=== PATIENT | female | born 1995 | race Caucasian/White ===

== ENCOUNTER → 2016-09-20 | Outpatient (CLI) | payer MEDICAID ==
[~2016-09-20] MED LIST: NITR-65 PO; PREN1TAB86 PO
--- OUTSIDE RECORDS SUMMARY | 2016-09-20 12:41 | XMS REPORT | Continuity of Care Document ---
Author Author [facility] Ctr of [facility] Ctr [facility] Address Unknown Phone Unavailable Allergies Active Description Code Type Severity Reaction Onset Reported/Identified Relationship to Patient Clinical Status Yes No Known Drug Allergies [id number] Drug Allergy Unknown N/ A 06/20/2014 Medications Problems Date Dx Coded Attending Type Code Diagnosis Diagnosed By 08/11/2009 466.0 ACUTE BRONCHITIS 08/11/2009 466.0 ACUTE BRONCHITIS 08/11/2009 NORM ARCE DO 466.0 ACUTE BRONCHITIS 08/11/2009 466.0 ACUTE BRONCHITIS 08/11/2009 PADILLA IRVIN APRN 466.0 ACUTE BRONCHITIS 08/11/2009 NORM ARCE DO 466.0 ACUTE BRONCHITIS 08/11/2009 NORM ARCE DO 466.0 ACUTE BRONCHITIS 08/11/2009 JAYCEE CORTÉS APRN 466.0 ACUTE BRONCHITIS 05/31/2010 625.3 DYSMENORRHEA 05/31/2010 626.4 IRREGULAR MENSTRUAL CYCLE 05/31/2010 V25.41 SURVEILLANCE OF CONTRACEPTIVE PILL 05/31/2010 625.3 DYSMENORRHEA 05/31/2010 626.4 IRREGULAR MENSTRUAL CYCLE 05/31/2010 V25.41 SURVEILLANCE OF CONTRACEPTIVE PILL 05/31/2010 NORM ARCE DO 625.3 DYSMENORRHEA 05/31/2010 NORM ARCE DO 626.4 IRREGULAR MENSTRUAL CYCLE 05/31/2010 NORM ARCE DO V25.41 SURVEILLANCE OF CONTRACEPTIVE PILL 05/31/2010 625.3 DYSMENORRHEA 05/31/2010 626.4 IRREGULAR MENSTRUAL CYCLE 05/31/2010 V25.41 SURVEILLANCE OF CONTRACEPTIVE PILL 05/31/2010 PADILLA IRVIN APRN 625.3 DYSMENORRHEA 05/31/2010 PADILLA IRVIN APRN 626.4 IRREGULAR MENSTRUAL CYCLE 05/31/2010 PADILLA IRVIN APRN V25.41 SURVEILLANCE OF CONTRACEPTIVE PILL 05/31/2010 NORM ARCE DO 625.3 DYSMENORRHEA 05/31/2010 NORM ARCE DO 626.4 IRREGULAR MENSTRUAL CYCLE 05/31/2010 NORM ARCE DO V25.41 SURVEILLANCE OF CONTRACEPTIVE PILL 05/31/2010 ARCE NORM PATTERSON K 625.3 DYSMENORRHEA 05/31/2010 NORM ARCE DO K 626.4 IRREGULAR MENSTRUAL CYCLE 05/31/2010 ARCE NORM PATTERSON V25.41 SURVEILLANCE OF CONTRACEPTIVE PILL 05/31/2010 JAYCEE CORTÉS APRN R 625.3 DYSMENORRHEA 05/31/2010 JAYCEE CORTÉS APRN 626.4 IRREGULAR MENSTRUAL CYCLE 05/31/2010 JAYCEE CORTÉS APRN V25.41 SURVEILLANCE OF CONTRACEPTIVE PILL 10/04/2011 V04.89 GARDASIL (HPV) DX 10/04/2011 V04.89 GARDASIL (HPV) DX 10/04/2011 NORM ARCE DO V04.89 GARDASIL (HPV) DX 10/04/2011 V04.89 GARDASIL (HPV) DX 10/04/2011 PADILLA IRVIN APRN V04.89 GARDASIL (HPV) DX 10/04/2011 NORM ARCE DO V04.89 GARDASIL (HPV) DX 10/04/2011 NORM ARCE DO V04.89 GARDASIL (HPV) DX 10/04/2011 JAYCEE CORTÉS APRN V04.89 GARDASIL (HPV) DX 04/03/2012 373.12 HORDEOLUM INTERNUM 04/03/2012 373.12 HORDEOLUM INTERNUM 04/03/2012 NORM ARCE DO 373.12 HORDEOLUM INTERNUM 04/03/2012 373.12 HORDEOLUM INTERNUM 04/03/2012 PADILLA IVRIN APRN 373.12 HORDEOLUM INTERNUM 04/03/2012 NORM ARCE DO 373.12 HORDEOLUM INTERNUM 04/03/2012 NORM ARCE DO 373.12 HORDEOLUM INTERNUM 04/03/2012 JAYCEE CORTÉS APRN 373.12 HORDEOLUM INTERNUM 04/10/2012 V25.02 CONTRACEPTION - ANY METHOD 04/10/2012 V65.45 STD COUNSELING 04/10/2012 V74.5 STD SCREEN 04/10/2012 V25.02 CONTRACEPTION - ANY METHOD 04/10/2012 V65.45 STD COUNSELING 04/10/2012 V74.5 STD SCREEN 04/10/2012 NORM ARCE DO K V25.02 CONTRACEPTION - ANY METHOD 04/10/2012 ANASTACIA ARCE DOA K V65.45 STD COUNSELING 04/10/2012 ARCE ANASTACIA PATTERSONA K V74.5 STD SCREEN 04/10/2012 V25.02 CONTRACEPTION - ANY METHOD 04/10/2012 V65.45 STD COUNSELING 04/10/2012 V74.5 STD SCREEN 04/10/2012 PADILLA IRVIN APRN V25.02 CONTRACEPTION - ANY METHOD 04/10/2012 PADILLA IRVIN APRN A V65.45 STD COUNSELING 04/10/2012 PADILLA IRVIN APRN A V74.5 STD SCREEN 04/10/2012 NORM ARCE DO V25.02 CONTRACEPTION - ANY METHOD 04/10/2012 NORM ARCE DO V65.45 STD COUNSELING 04/10/2012 NORM ARCE DO K V74.5 STD SCREEN 04/10/2012 ANASTACIA ARCE DOA K V25.02 CONTRACEPTION - ANY METHOD 04/10/2012 ARCE ANASTACIA PATTERSONA K V65.45 STD COUNSELING 04/10/2012 ARCE ANASTACIA PATTERSONA K V74.5 STD SCREEN 04/10/2012 JAYCEE CORTÉS APRN V25.02 CONTRACEPTION - ANY METHOD 04/10/2012 JAYCEE CORTÉS APRN V65.45 STD COUNSELING 04/10/2012 JAYCEE CORTÉS APRN R V74.5 STD SCREEN 08/23/2012 V70.0 EXAM - ROUTINE H&P 08/23/2012 V70.0 EXAM - ROUTINE H&P 08/23/2012 ANASTACIA ARCE DOA K V70.0 EXAM - ROUTINE H&P 08/23/2012 PADILLA IRVIN APRN A V70.0 EXAM - ROUTINE H&P 08/23/2012 ANASTACIA ARCE DOA K V70.0 EXAM - ROUTINE H&P 08/23/2012 ANASTACIA ARCE DOA K V70.0 EXAM - ROUTINE H&P 08/23/2012 JAYCEE CORTÉS APRN R V70.0 EXAM - ROUTINE H&P 11/12/2012 V25.9 CONTRACEPTION MANAGEMENT 11/12/2012 NORM ARCE DO K V25.9 CONTRACEPTION MANAGEMENT 11/12/2012 PADILLA IRVIN APRN A V25.9 CONTRACEPTION MANAGEMENT 11/12/2012 NORM ARCE DO K V25.9 CONTRACEPTION MANAGEMENT 11/12/2012 ANASTACIA ARCE DOA K V25.9 CONTRACEPTION MANAGEMENT 11/12/2012 JAYCEE CORTÉS APRN R V25.9 CONTRACEPTION MANAGEMENT 2013 ARCE NORM PATTERSON V25.49 CONTRACEPTION SURVEILLANCE (REPEAT RX) 2013 PADILLA IRVIN APRN A V25.49 CONTRACEPTION SURVEILLANCE (REPEAT RX) 2013 NORM ARCE DO V25.49 CONTRACEPTION SURVEILLANCE (REPEAT RX) 2013 NORM ARCE DO V25.49 CONTRACEPTION SURVEILLANCE (REPEAT RX) 2013 JAYCEE CORTÉS APRN V25.49 CONTRACEPTION SURVEILLANCE (REPEAT RX) 06/20/2014 IMELDA SOURAV PATTERSON Ot 599.0 06/20/2014 IMELDA SOURAV PATTERSON Ot 789.09 07/20/2014 JAYCEE CORTÉS APRN 462 ACUTE PHARYNGITIS 03/05/2015 ANDIE ORELLANA APRN Ot 784.0 Procedures Code [place] [address] URINE TEST (IN-HOUSE) 08/23/2012 04507 THERAPUTIC INJ SQ/IM 08/23/2012 J1055 DEPO-PROVERA INJ 150 MG 08/23/2012 48879 URINE TEST (IN-HOUSE) 11/12/2012 44699 THERAPUTIC INJ SQ/IM 11/12/2012 J1050 DEPO PROVERA 01/2013 94010 URINE TEST (IN-HOUSE) 04/29/2013 J1050 DEPO PROVERA 37027 THERAPUTIC INJ SQ/IM 04/29/2013 25909 THERAPUTIC INJ SQ/IM 07/16/2013 J1050 DEPO PROVERA 02/2014 65070 TEST, URINE (IN-HOUSE) 07/16/2013 69822 THERAPUTIC INJ SQ/IM 09/30/2013 J1050 DEPO PROVERA 11456 TEST, URINE (IN-HOUSE) 09/30/2013 03645 THERAPUTIC INJ SQ/IM 12/17/2013 J1050 DEPO PROVERA 05/2014 62238 TEST, URINE (IN-HOUSE) 12/17/2013 20011 STREP A (IN-HOUSE) 07/20/2014 Results Encounters ACCT No. Visit Date/Time Discharge Status Pt. Type Provider Facility Loc./Unit Complaint [id number] 07/20/2014 14:09:00 07/20/2014 23: 59:59 CLS Outpatient JAYCEE CORTÉS APRN [id number] 12/17/2013 13:43:00 12/17/2013 23: 59:59 CLS Outpatient NORM ARCE DO [id number] 09/30/2013 08:09:00 09/30/2013 23: 59:59 CLS Outpatient NORM ARCE DO [id number] 07/16/2013 15:13:00 07/16/2013 23: 59:59 CLS Outpatient PADILLA IRVIN APRN [id number] 04/29/2013 09:57:00 04/29/2013 23: 59:59 CLS Outpatient NORM ARCE DO [id number] 08/23/2012 15:48:00 08/23/2012 23: 59:59 CLS Outpatient [id number] 04/10/2012 10:03:00 04/10/2012 23: 59:59 CLS Outpatient [id number] 11/12/2012 16:41:00 Document Registration
--- NOTE | 2016-09-20 15:47 | Diagnostic Imaging Report ---
INDICATION: Incomplete anatomical evaluation. TECHNIQUE: Multiple, limited real-time grayscale images were obtained of the gravid uterus. CORRELATION STUDY: None. FINDINGS: Cervical length at 4 cm. Fetus is currently in a breech presentation. There is normal amount of amniotic fluid with an index at 16 cm. Placenta is posterior and is somewhat low lying, placenta approximately 2 cm from the cervix. Definitive previa does not appear to be present. The visualized portions of the head appearing unremarkable. The remainder of the anatomical evaluation not performed. Biometrical growth parameters not performed. cardiac activity at 158 beats per minute. IMPRESSION: 1. Very limited obstetrical sonogram imaging demonstrates unremarkable appearance about the head. 2. Posterior placenta is low lying but without definitive evidence for previa. Dictated by: Dictated on workstation # [id number]
== END ==
LOC: RAD 12:37
PROVIDERS: ATTEND Obstetrics & Gynecology
DX: Z36 Encounter for antenatal screening of mother (principal); Z3A.00 Weeks of gestation of pregnancy not specified
CPT/HCPCS: 76816

== ENCOUNTER 2016-11-15 06:21 | Outpatient (CLI) | payer MEDICAID ==
[~2016-11-15] VITALS: Ht 160 cm; Wt 72.1 kg
[~2016-11-15 06:21] MED LIST changes: -PREN1TAB86 PO
[2016-11-15] MEDS ORDERED: PREN1TAB86 PO (06:48)
[2016-11-15 07:01] VITALS: BP 131/77
--- NOTE | 2016-11-16 11:33 | Physician Query-Final Dx ---
MATT CARMEN 11/16/16 1133: Clinic Account Progress/Dx Physician Query: Please give diagnosis Date of Service November 15, 2016 at 06:21 ELICEO WHATLEY DO 11/16/16 1250: Clinic Account Progress/Dx DIAGNOSIS: Diagnosis ??? Dr. Cruz I believe took the call on this patient. Didn't realize she came in. MATT CARMEN November 16, 2016 11:33 ELICEO WHATLEY DO November 16, 2016 12:50
--- NOTE | 2016-11-17 17:01 | Physician Query-Final Dx ---
MATT CARMEN 11/17/16 1701: Clinic Account Progress/Dx Physician Query: Please give diagnosis Date of Service November 15, 2016 at 06:21 CARRINGTON MUJICA MD 11/21/16 1704: Clinic Account Progress/Dx DIAGNOSIS: Diagnosis Round ligament pain, third trimester MATT CARMEN November 17, 2016 17:01 CARRINGTON MUJICA MD November 21, 2016 17:04
== END 2016-11-15 07:30 | disposition home or self-care (01) ==
LOC: WSo 06:21 → LDRP 06:22 → WSo 07:30
PROVIDERS: ATTEND Obstetrics & Gynecology
DX: O26.93 Pregnancy related conditions, unspecified, third trimester (principal); R10.2 Pelvic and perineal pain; Z3A.35 35 weeks gestation of pregnancy
CPT/HCPCS: 99213

== ENCOUNTER 2016-12-09 09:35 | Inpatient (IN) | payer MEDICAID ==
[~2016-12-09] VITALS: Ht 160 cm; Wt 72.6 kg
[2016-12-09] VITALS (27 sets, daily range): BP systolic 106–142; BP diastolic 59–91
[~2016-12-09 09:35] MED LIST changes: +PREN1TAB86 PO
[2016-12-09] MEDS ORDERED: D5 LR IV SOLUTION 1,000 ML IV SCH (10:03)
[2016-12-09] MEDS ORDERED: LIDOCAINE/EPI 1%-1:200,000 (XYLOCAINE) 30 ML VIAL INJ PRN (10:15)
[2016-12-09] MEDS ORDERED: MINERAL OIL CONCENTRATE 99.9% 15 ML UDC TOP PRN (10:15)
[2016-12-09 10:33] LABS: BASOPHILS % (AUTO) 0 % (0-10); EOSINOPHILS # (AUTO) 0.1 10^3/uL (0.0-0.3); EOSINOPHILS % (AUTO) 1 % (0-10); LYMPHOCYTES # (AUTO) 2.1 X 10^3 (1.0-4.0); LYMPHOCYTES % (AUTO) 19 % (12-44); MEAN CORPUSCULAR HEMOGLOBIN 29 PG (25-34); MEAN CORPUSCULAR HGB CONC 33 G/DL (32-36); MEAN CORPUSCULAR VOLUME 88 FL (80-99); MEAN PLATELET VOLUME 11.6 FL (7.4-10.4); MONOCYTES # (AUTO) 0.7 X 10^3 (0.0-1.0); MONOCYTES % (AUTO) 7 % (0-12); NEUTROPHILS # (AUTO) 8.1 X 10^3 (1.8-7.8); NEUTROPHILS % (AUTO) 73 % (42-75); PLATELET COUNT 185 10^3/uL (130-400); RED CELL DISTRIBUTION WIDTH 13.8 % (10.0-14.5); WHITE BLOOD COUNT 11.1 10^3/uL (4.3-11.0)
[2016-12-09] MEDS ORDERED: HYDROmorphone (DILAUDID) 2 MG/ML VIAL IVP PRN ×2 (11:00→19:00)
[2016-12-09 12:28] LABS: BILIRUBIN,URINE NEGATIVE (NEGATIVE); KETONES,URINE NEGATIVE (NEGATIVE); LEUKOCYTE ESTERASE ,URINE 3+ (NEGATIVE); NITRITE,URINE NEGATIVE (NEGATIVE); PH,URINE 7 (5-9); PROTEIN,URINE 4+ (NEGATIVE); UROBILINOGEN,URINE NORMAL (NORMAL)
[2016-12-09 12:38] LABS: SQUAMOUS EPITHELIAL CELL,UR >50 /HPF; WBC,URINE 25-50 /HPF
[2016-12-09] MEDS ORDERED: fentaNYL INJECTION 100 MCG/2 ML AMP ONE ×3 (12:58→18:20)
[2016-12-09] MEDS ORDERED: BUPIVACAINE 0.25% 30 ML (SENSORCAINE) VIAL ONE ×2 (12:58→18:08)
[2016-12-09] MEDS ORDERED: SUFENTA 0.6MCG/ML BUPIVA 0.125 100 ML ONE (13:02)
[2016-12-09] MEDS ORDERED: ONDANSETRON 4 MG/2 ML (SDV) Z0FRAN IV PRN (13:30)
[2016-12-09] MEDS ORDERED: NALOXONE 0.4 MG/ML 1 ML (NARCAN) VIAL IV PRN ×2 (13:30)
[2016-12-09] MEDS ORDERED: EPIDURAL (SUFENTA 0.6MCG/ML BUPIVA 0.125%) 100 ML BAG EPI PRN (13:30)
[2016-12-09] MEDS ORDERED: METOCLOPRAMIDE INJ 10 MG/2 ML (REGLAN) IV PRN (13:30)
[2016-12-09] MEDS ORDERED: LACTATED RINGERS 1,000 ML IV SCH (13:30)
[2016-12-09] MEDS ORDERED: diphenhydrAMINE 50 MG/ML INJ (BENADRYL) IV PRN (13:30)
[2016-12-09] MEDS ORDERED: LACTATED RINGERS 1,000 ML IV PRN (17:28)
[2016-12-09] MEDS ORDERED: NS (IVPB) 0 ML ONE (17:29)
[2016-12-09] MEDS ORDERED: ceFAZolin 2 GM/50 ML NS 50 ML IV ONE (17:30)
[2016-12-09] MEDS ORDERED: FAMOTIDINE 20MG/2ML IV (PEPCID) IV ONE (17:30)
[2016-12-09] MEDS ORDERED: CITRIC ACID/SOB CIT (BICITRA) 30 ML UDC PO ONE (17:30)
[2016-12-09] MEDS ORDERED: METOCLOPRAMIDE INJ 10 MG/2 ML (REGLAN) IV ONE (17:30)
--- NOTE | 2016-12-09 17:31 | History & Physical-OB ---
OB - Chief Complaint & HPI Date Date of Admission: Date of Admission: Dec 09, 2016 at 10:07 am Chief Complaint/History OB-Reason for Admission/Chief: Rupture of Membranes Hx : 1 Hx Para: 0 Expected Date of Delivery: Dec 17, 2016 Gestational Age in Weeks: 38 Gestational Age in Days: 6 Other reason for admission: Active labor SROM Admission Nurse Assessment Rev: Yes History of Labs O pos Antibody neg RNI HBsAg NR HIV NR RPR NR GC neg GBS neg Allergies and Home Medications Allergies Coded Allergies: No Known Drug Allergies (Unverified , 06/20/14) Home Medications Vit W-Ca,Fe,FA(<1 mg) 1 Each Tablet, 1 EACH PO DAILY, (Reported) OB - History Hx of Present Care: Yes Ultrasounds: Normal mid trimester US Obstetrical Complications: None Medical Complications: None Delivery History Hx Blood Disorders: No Adverse Rxn to Tranfusion: No Patient Past Medical History none OB - Admission Exam Physical Exam HEENT: NCAT Heart: Rhythm Normal Lungs: Clear Abdomen: Gravid Extremities: Normal Reflexes: Normal Cervical Dilatation: 3cm Effacement: 75% Station: -1 Membranes: Ruptured Amniotic Fluid: Clear Heart Rate: 130's Accelerations: Accelerations Present Decelerations: No Decelerations Short Term Variability: Present Usp Variability: Average (6-25) Contractions on Admission: < 5 Minutes Apart Intensity: Moderate Labs Laboratory Tests Test 12/09/16 10:15 12/09/16 12:15 Range/Units White Blood Count 11.1 H 4.3-11.0 10^3/uL Red Blood Count 4.20 L 4.35-5.85 10^6/uL Hemoglobin 12.2 11.5-16.0 G/DL Hematocrit 37 35-52 % Mean Corpuscular Volume 88 80-99 FL Mean Corpuscular Hemoglobin 29 25-34 PG Mean Corpuscular Hemoglobin Concent 33 32-36 G/DL Red Cell Distribution Width 13.8 10.0-14.5 % Platelet Count 185 130-400 10^3/uL Mean Platelet Volume 11.6 H 7.4-10.4 FL Neutrophils (%) (Auto) 73 42-75 % Lymphocytes (%) (Auto) 19 12-44 % Monocytes (%) (Auto) 7 0-12 % Eosinophils (%) (Auto) 1 0-10 % Basophils (%) (Auto) 0 0-10 % Neutrophils # (Auto) 8.1 H 1.8-7.8 X 10^3 Lymphocytes # (Auto) 2.1 1.0-4.0 X 10^3 Monocytes # (Auto) 0.7 0.0-1.0 X 10^3 Eosinophils # (Auto) 0.1 0.0-0.3 10^3/uL Basophils # (Auto) 0.0 0.0-0.1 10^3/uL Urine Color RED H Urine Clarity MUCOUS Urine pH 7 5-9 Urine Specific [place] 1.015 L 1.016-1.022 Urine Protein 4+ NEGATIVE Urine Glucose (UA) NEGATIVE NEGATIVE Urine Ketones NEGATIVE NEGATIVE Urine Nitrite NEGATIVE NEGATIVE Urine Bilirubin NEGATIVE NEGATIVE Urine Urobilinogen NORMAL NORMAL MG/DL Urine Leukocyte Esterase 3+ H NEGATIVE Urine RBC (Auto) 5+ H NEGATIVE Urine RBC 50-100 H /HPF Urine WBC 25-50 H /HPF Urine Squamous Epithelial Cells >50 H /HPF Urine Crystals NONE /LPF Urine Bacteria NEGATIVE /HPF Urine Casts NONE /LPF Urine Mucus LARGE H /LPF Urine Culture Indicated YES OB - Assessment/Plan/Diagnosis Assessment Assessment: active labor, rupture of membranes Plan Plan: Expectant Management Discharge Diagnosis Diagnosis: 21 yo @ 38.6 weeks Active labor/ SROM GBS neg ELICEO WHATLEY DO Dec 09, 2016 5:31 pm
--- NOTE | 2016-12-09 17:40 | Progress Note-Standard ---
Standard Progress Note Progress Notes/Assess & Plan Date Seen by Provider: Dec 09, 2016 Time Seen by Provider: 17:15 Progress/Assessment & Plan Patient admitted this morning for SROM and noted to be in active labor making adequate cervical change. She continued to do well, with exception of a few times where FHR tracing was lost, with evidence of potential prolonged decelerations with unknown heart rate change. She received an epidural and continued to progress. She was approx 8-9 at 1430 this afternoon when I checked on patient, and at that time she was noted to be having several variable / and late appearing FHR decelerations. 2 of these were noted down to the 80s with acute recovery. However tachycardia was noted to slowly ensue after these decelerations occurred. I presented at 1700 to evaluate the patient due to these findings given to me by the RN over the phone. There was definitely tachycardia noted. I checked the patient, and due to proximity to complete, had her attempt a few trials of pushing, which did not progress the head any. At this point SVE was 9-10/100/ 0 station. Due to an anticipated long 2nd stage, and continued concern for well being( due to persistent tachycardia and episodes of late/variable/ and prolonged heart rate decelerations, recommendation was made to proceed with primary . Risk of this was discussed with the patient, including risk of bleeding, infection, damaging surrounding structures, potential need for blood transfusion, and even . After all of this was discussed, all questions were answered. OR crew was notified and will proceed [place]. ELICEO WHATLEY DO Dec 09, 2016 5:40 pm
[2016-12-09] MEDS ORDERED: BUPIVACAINE 0.5% 30 ML (SENSORCAINE) VIAL ONE (17:44)
[2016-12-09] MEDS ORDERED: LIDOCAINE PF 2% 10 ML (XYLOCAINE) AMP ONE (17:44)
[2016-12-09] MEDS ORDERED: ONDANSETRON 4 MG/2 ML (SDV) Z0FRAN ONE (18:54)
[2016-12-09] MEDS ORDERED: OXYTOCIN/NORMAL SALINE 1,000 ML IV ONE (18:54)
[2016-12-09] MEDS ORDERED: DEXAMETHASONE PF 10 MG/ML (DECADRON) VIAL ONE (18:54)
[2016-12-09] MEDS ORDERED: OXYTOCIN/NORMAL SALINE 500 ML IV SCH (18:59)
[2016-12-09] MEDS ORDERED: TETANUS,DIPTH,PERTUSS P/F (BOOSTRIX) 0.5 ML VIAL IM SCH (19:00)
[2016-12-09] MEDS ORDERED: MEASLES,MUMPS,RUBELLA 1 EA INJ SC SCH (19:00)
[2016-12-09] MEDS ORDERED: fentaNYL INJECTION 100 MCG/2 ML AMP IVP PRN (19:30)
[2016-12-09] MEDS ORDERED: ONDANSETRON 4 MG/2 ML (SDV) Z0FRAN IVP PRN (19:30)
[2016-12-09] MEDS: KETOROLAC 30 MG/ML VIAL IVP SCH (21:13)
[2016-12-09] MEDS: HYDROcodone/APAP 5 MG/325 MG (LORTAB) TAB PO PRN (21:16)
[2016-12-09] MEDS ORDERED: CATHETER FLUSH 10 ML SYR IV SCH (22:00)
[2016-12-09] MEDS: CATHETER FLUSH 10 ML SYR IV SCH ×2 (22:15→23:59)
--- NOTE | 2016-12-09 22:25 | OPERATIVE REPORT ---
DATE OF SERVICE: PREOPERATIVE DIAGNOSES: 1. A 21-year-old G1, P0 at 38 weeks and 6 days. 2. intolerance of labor. 3. Persistent tachycardia. POSTOPERATIVE DIAGNOSES: 1. A 21-year-old G1, P0 at 38 weeks and 6 days. 2. intolerance of labor. 3. Persistent tachycardia. 4. Double nuchal cord. PROCEDURES: Primary low transverse section. SURGEON: Calos Whatley DO ANESTHESIA: Epidural which is bolused. ESTIMATED BLOOD LOSS: A 350 mL. URINE OUTPUT: At 700 mL clear at the end of procedure. FLUIDS: At 500 mL of lactated Ringer's solution. FINDINGS: A live male infant with weight and still pending, who required resuscitative efforts that will be detailed by crop specialist's note. SPECIMEN SENT: Placenta. INDICATIONS FOR PROCEDURE: Please see my preoperative note for complete details pertaining to patient's labor course and indications for proceeding with . PROCEDURE IN DETAIL: The patient was taken to the operating room where epidural analgesia was bolused and found to be adequate, was placed in a supine position with a leftward tilt, prepped and draped in normal sterile fashion. A test of anesthesia was performed and timeout was performed. I then proceeded with making a Pfannenstiel skin incision with a knife and carried down to underlying fascia using Bovie cautery. The fascial incision was extended laterally using Bovie cautery. Superior aspect of the fascial incision was then grasped with Royce clamps, tented over and dissected off the underlying rectus muscles. The inferior aspect of the fascial incision was then grasped with Royce clamps, tented upward and dissected off to underlying rectus muscles. The rectus muscles were then dissected down the midline using Kirk scissors which exposes the peritoneum which is entered bluntly and extended with blunt traction. A Bhavin ring retractor was placed in the peritoneal incision which offers excellent lateral sidewall retraction. The uterus was found to be thinned out. I then proceed with making a low transverse incision across the uterus to the vesicouterine peritoneum and bluntly dissecting this off the lower uterine segment. I then proceeded with my myotomy until membranes were visualized and entry into the amniotic cavity is noted. I proceed with exiting the uterine incision laterally and superiorly using bandage scissors. The infant is found in the vertex presentation. Its head is elevated up to the incision where it is delivered. Nares and oropharynx are bulb suctioned and there is a double nuchal cord reduced x 2. The infant is then brought into operative field, where the cord was doubly clamped and cut and the is handed off to waiting crop specialist. Cord blood is collected. Three-vessel cord was intact. Placenta is delivered spontaneously, thereafter. IV Pitocin is initiated to facilitate uterine contraction. The uterine fundus becomes firmer by manual massage. The uterus was then exteriorized and cleared of all endometrial clots and debris. I then closed the uterine incision using 0-Vicryl suture in running locked fashion, second layer of imbricating 0-Monocryl is placed. Excellent hemostasis was noted after doing so. I then placed the uterus and bilateral fallopian tubes and ovaries back within the pelvis, and copiously irrigated the pelvis using normal saline. There is no active bleeding noted from any dissection plane. I placed Interceed adhesive over my low transverse incision. I then proceeded with closing the peritoneum using 2-0 Vicryl suture in running fashion. The rectus muscles was reapproximated using 3-0 Vicryl suture in an interrupted fashion. The fascia was reapproximated using 0 Vicryl suture in running fashion. The subcutaneous tissue was reapproximated using 3-0 plain in an interrupted subcutaneous stitch. The skin was reapproximated using 4-0 Monocryl in a running subcuticular. Dermabond was placed over the incision and a sterile dressing and adhesed with white tape. The patient tolerated the procedure well and was taken to the recovery area in stable condition. Lap and sponge counts were correct at the end of the procedure. Needle count was correct as well. Job ID: [id number] DocumentID: [id number] Dictated Date: 12/09/2016 19:00:09 Mathematics Improvement Teacher Date: 12/09/2016 21:48:14 Dictated By: CALOS WHATLEY DO
[2016-12-09] MEDS: DOCUSATE SODIUM 100 MG (COLACE) CAP PO SCH (22:29)
[2016-12-10 00:45] VITALS: BP 117/68
[2016-12-10] MEDS: KETOROLAC 30 MG/ML VIAL IVP SCH ×2 (02:52→08:26)
[2016-12-10 05:52] LABS: BASOPHILS % (AUTO) 0 % (0-10); EOSINOPHILS % (AUTO) 0 % (0-10); LYMPHOCYTES # (AUTO) 1.8 X 10^3 (1.0-4.0); LYMPHOCYTES % (AUTO) 7 % (12-44); MEAN CORPUSCULAR HEMOGLOBIN 29 PG (25-34); MEAN CORPUSCULAR HGB CONC 33 G/DL (32-36); MEAN CORPUSCULAR VOLUME 89 FL (80-99); MONOCYTES # (AUTO) 1.1 X 10^3 (0.0-1.0); MONOCYTES % (AUTO) 5 % (0-12); NEUTROPHILS # (AUTO) 21.8 X 10^3 (1.8-7.8); NEUTROPHILS % (AUTO) 88 % (42-75); PLATELET COUNT 153 10^3/uL (130-400); RED BLOOD COUNT 3.54 10^6/uL (4.35-5.85); WHITE BLOOD COUNT 24.7 10^3/uL (4.3-11.0)
[2016-12-10 06:10] VITALS: BP 113/60
[2016-12-10 08:05] VITALS: BP 114/69
[2016-12-10] MEDS: DOCUSATE SODIUM 100 MG (COLACE) CAP PO SCH (08:26)
[2016-12-10] MEDS ORDERED: IBUP-1773 PO (08:54)
[2016-12-10] MEDS ORDERED: HYDR-3812 PO (08:54)
[2016-12-10] MEDS ORDERED: DOCU100C37 PO (08:54)
--- NOTE | 2016-12-10 08:56 | Discharge Inst-Women's Service ---
Discharge Inst-Women's Serv Depart Medication/Instructions New, Converted or Re-Newed RX: RX on Chart Consults/Follow Up Additional Follow Up: Yes Orders/Referrals Dr. Pedraza later this week. (Call for appointment) Activity Activity: Activity as Tolerated Driving Instructions: No Driving for 1 Week NO SMOKING: NO SMOKING Nothing Inside Vagina: No Douching, No [place], No Tampons Diet Discharge Diet: No Restrictions Symptoms to Report to : Bleeding Excessive, Pain Increased, Fever Over 101 Degrees F, Vaginal Bleeding Increase, Questions/Concerns For Any Problems or Questions: Contact Your Physician Skin/Wound Care Infection Signs and Symptoms: Increased Redness, Foul Odor of Wound, Increased Drainage, Skin Itchy or Has a Rash, Increased Swelling, Temperature Above 101 F Operative Area Clean and Dry: Keep Incision Clean/Dry Stitches/[place]/Dermabond: Dermabond, Care of Stitches Bathing Instructions: ELICEO Escamilla DO Dec 10, 2016 08:56
--- NOTE | 2016-12-10 08:59 | Progress Note-Standard ---
Standard Progress Note Progress Notes/Assess & Plan Date Seen by Provider: Dec 10, 2016 Time Seen by Provider: 09:00 Progress/Assessment & Plan Patient doing well this AM, asking about discharge due to transfer to [place]. Reports good pain control. Ambulating and voiding freely. Vital Sign - Last 24 Hours 12/09/16 617 6//17 617 09:48 11:30 12:00 12:30 Temp 97.2 Pulse 61 52 68 60 Resp 18 18 18 18 B/P (MAP) 134/81 127/81 142/78 142/80 //17 6//17 6//17 17 13:00 13:10 13:13 13:14 Temp 97.2 Pulse 67 77 86 75 Resp 18 18 18 18 B/P (MAP) 130/91 133/87 130/84 129/77 Pulse Ox 97 97 97 /3/17 6//17 6//17 17 13:16 13:20 13:30 13:45 Temp 97.2 Pulse 100 86 103 90 Resp 18 18 18 18 B/P (MAP) 137/86 125/68 121/61 119/59 Pulse Ox 97 97 97 97 /3/17 6//17 //17 17 14:00 14:15 14:30 14:45 Temp 97.0 97.0 Pulse 82 109 66 89 Resp 18 18 18 18 B/P (MAP) 119/69 123/72 117/65 116/67 Pulse Ox 97 98 98 99 12/09/17 12/09/17 //17 12/09/17 15:00 15:15 15:30 15:45 Temp 97.2 Pulse 101 96 78 103 Resp 18 18 18 18 B/P (MAP) 112/64 114/60 122/77 Pulse Ox 99 98 99 100 //17 12/09/17 //17 //17 16:00 16:15 16:30 16:45 Temp 97.6 Pulse 86 76 105 89 Resp 18 18 18 18 B/P (MAP) 108/73 106/61 136/85 Pulse Ox 100 100 100 100 /3/17 12/09/17 //17 17 17:00 17:15 17:30 17:45 Temp 97.5 99.6 Pulse 84 116 108 77 Resp 18 18 18 B/P (MAP) 131/85 137/63 123/74 Pulse Ox 100 100 100 100 12/09/16 12/09/16 12/10/16 12/10/16 18:00 20:05 00:45 06:10 Temp 99.3 97.5 97.4 Pulse 98 78 60 54 Resp 18 18 18 18 B/P (MAP) 125/78 109/63 117/68 113/60 Pulse Ox 100 96 95 97 Intake and Output 12/09/16 12/09/16 12/10/16 15:00 23:00 07:00 Intake Total 1000 ml 2050 ml 1700 ml Output Total 800 ml 600 ml Balance 1000 ml 1250 ml 1100 ml Laboratory Tests Test 12/09/16 10:15 12/09/16 12:15 12/10/16 04:40 Range/Units White Blood Count 11.1 H 24.7 H 4.3-11.0 10^3/uL Red Blood Count 4.20 L 3.54 L 4.35-5.85 10^6/uL Hemoglobin 12.2 10.3 L 11.5-16.0 G/DL Hematocrit 37 31 L 35-52 % Mean Corpuscular Volume 88 89 80-99 FL Mean Corpuscular Hemoglobin 29 29 25-34 PG Mean Corpuscular Hemoglobin Concent 33 33 32-36 G/DL Red Cell Distribution Width 13.8 14.0 10.0-14.5 % Platelet Count 185 153 130-400 10^3/uL Mean Platelet Volume 11.6 H 12.0 H 7.4-10.4 FL Neutrophils (%) (Auto) 73 88 H 42-75 % Lymphocytes (%) (Auto) 19 7 L 12-44 % Monocytes (%) (Auto) 7 5 0-12 % Eosinophils (%) (Auto) 1 0 0-10 % Basophils (%) (Auto) 0 0 0-10 % Neutrophils # (Auto) 8.1 H 21.8 H 1.8-7.8 X 10^3 Lymphocytes # (Auto) 2.1 1.8 1.0-4.0 X 10^3 Monocytes # (Auto) 0.7 1.1 H 0.0-1.0 X 10^3 Eosinophils # (Auto) 0.1 0.0 0.0-0.3 10^3/uL Basophils # (Auto) 0.0 0.0 0.0-0.1 10^3/uL Urine Color RED H Urine Clarity MUCOUS Urine pH 7 5-9 Urine Specific [place] 1.015 L 1.016-1.022 Urine Protein 4+ NEGATIVE Urine Glucose (UA) NEGATIVE NEGATIVE Urine Ketones NEGATIVE NEGATIVE Urine Nitrite NEGATIVE NEGATIVE Urine Bilirubin NEGATIVE NEGATIVE Urine Urobilinogen NORMAL NORMAL MG/DL Urine Leukocyte Esterase 3+ H NEGATIVE Urine RBC (Auto) 5+ H NEGATIVE Urine RBC 50-100 H /HPF Urine WBC 25-50 H /HPF Urine Squamous Epithelial Cells >50 H /HPF Urine Crystals NONE /LPF Urine Bacteria NEGATIVE /HPF Urine Casts NONE /LPF Urine Mucus LARGE H /LPF Urine Culture Indicated YES Incision c/d/i Diagnosis: POD 1 PLTCS Acute blood loss anemia Postoperative leukocytosis P: Will consider dc later today, but only POD1 so may keep until tomorrow morning depending on how repeat labs this afternoon look. Replace iron Encourage ambulation PO precautions, and routine care. ELICEO WHATLEY DO Dec 10, 2016 08:59
--- NOTE | 2016-12-10 12:43 | Anesthesia-Regional Post-Op ---
Regional Patient Condition Mental Status: Alert, Oriented x3 Circulation: Same as Pre-Op Headache: Absent Sensation: Full Recovery Motor Block: Absent Post Op Complications Complications None Follow Up Care/Instructions Patient Instructions None needed. Anesthesia/Patient Condition Patient is doing well, no complaints per nursing. Pt has left the floor to "smoke" per nursing staff. BEBE CAMPOS CRNA Dec 10, 2016 12:43
[2016-12-10] MEDS: HYDROcodone/APAP 5 MG/325 MG (LORTAB) TAB PO PRN (13:38)
[2016-12-10 14:00] VITALS: BP 131/80
[2016-12-10 15:49] LABS: BASOPHILS % (AUTO) 0 % (0-10); EOSINOPHILS % (AUTO) 0 % (0-10); LYMPHOCYTES # (AUTO) 3.7 X 10^3 (1.0-4.0); LYMPHOCYTES % (AUTO) 15 % (12-44); MEAN CORPUSCULAR HEMOGLOBIN 29 PG (25-34); MEAN CORPUSCULAR HGB CONC 33 G/DL (32-36); MEAN CORPUSCULAR VOLUME 89 FL (80-99); MEAN PLATELET VOLUME 11.7 FL (7.4-10.4); MONOCYTES % (AUTO) 4 % (0-12); NEUTROPHILS # (AUTO) 19.4 X 10^3 (1.8-7.8); NEUTROPHILS % (AUTO) 81 % (42-75); PLATELET COUNT 166 10^3/uL (130-400); RED BLOOD COUNT 3.53 10^6/uL (4.35-5.85); RED CELL DISTRIBUTION WIDTH 14.2 % (10.0-14.5); WHITE BLOOD COUNT 24.1 10^3/uL (4.3-11.0)
[2016-12-10 17:15] VITALS: BP 116/70
[2016-12-10] MEDS: FERROUS SULF 325 MG (IRON) TAB PO SCH (17:16)
[2016-12-10] MEDS: IBUPROFEN 600 MG (MOTRIN) TAB PO SCH (17:16)
[2016-12-10 19:15] VITALS: BP 116/72
[2016-12-10] MEDS ORDERED: CALCIUM CARBONATE 500 MG (TUMS) TAB.CHEW PO ONE (22:00)
[2016-12-11] MEDS: IBUPROFEN 600 MG (MOTRIN) TAB PO SCH ×2 (00:29→06:02)
[2016-12-11] MEDS: DOCUSATE SODIUM 100 MG (COLACE) CAP PO SCH ×2 (00:29→08:40)
[2016-12-11 02:00] VITALS: BP 100/56
[2016-12-11 06:39] LABS: BASOPHILS % (AUTO) 0 % (0-10); EOSINOPHILS # (AUTO) 0.1 10^3/uL (0.0-0.3); EOSINOPHILS % (AUTO) 1 % (0-10); LYMPHOCYTES # (AUTO) 4.5 X 10^3 (1.0-4.0); LYMPHOCYTES % (AUTO) 25 % (12-44); MEAN CORPUSCULAR HEMOGLOBIN 29 PG (25-34); MEAN CORPUSCULAR HGB CONC 32 G/DL (32-36); MEAN CORPUSCULAR VOLUME 90 FL (80-99); MEAN PLATELET VOLUME 11.5 FL (7.4-10.4); MONOCYTES # (AUTO) 0.8 X 10^3 (0.0-1.0); MONOCYTES % (AUTO) 4 % (0-12); NEUTROPHILS # (AUTO) 12.7 X 10^3 (1.8-7.8); NEUTROPHILS % (AUTO) 70 % (42-75); PLATELET COUNT 170 10^3/uL (130-400); RED BLOOD COUNT 3.53 10^6/uL (4.35-5.85); RED CELL DISTRIBUTION WIDTH 14.6 % (10.0-14.5); WHITE BLOOD COUNT 18.1 10^3/uL (4.3-11.0)
[2016-12-11 08:40] VITALS: BP 134/78
[2016-12-11] MEDS: FERROUS SULF 325 MG (IRON) TAB PO SCH (08:40)
== END 2016-12-11 10:43 | disposition home or self-care (01) | DRG 766 ==
LOC: LDRP 09:35 → WSo 09:35 → LDRP 10:07
PROVIDERS: ADMIT Obstetrics & Gynecology; ATTEND Obstetrics & Gynecology
PROC: 10D00Z1 Extraction of Products of Conception, Low, Open Approach (ICD-10-PCS; principal; 2016-12-09 18:04)
DX: O76 Abnormality in fetal heart rate and rhythm complicating labor and delivery (principal); O69.81X0 Labor and delivery complicated by cord around neck, without compression, not applicable or unspecified; Z37.0 Single live birth; Z3A.38 38 weeks gestation of pregnancy
CPT/HCPCS: 36415; 81000; 85025; 86850; 86900; 86901; 87088; 94664; 99212

== ENCOUNTER 2017-04-27 17:47 | Emergency (ER) | payer MEDICAID ==
[~2017-04-27] VITALS: Ht 160 cm; Wt 65.8 kg
[~2017-04-27 17:47] MED LIST changes: +DOCU100C37 PO; +HYDR-3812 PO; +IBUP-1773 PO
[2017-04-27] MEDS ORDERED: LIDO15SO2 MM (18:14)
[2017-04-27] MEDS ORDERED: NAPR500T3 PO (18:14)
[2017-04-27] MEDS ORDERED: AMOX875T2 PO (18:14)
--- NOTE | 2017-04-27 18:14 | ED EENT ---
History of Present Illness General Chief Complaint: Dental Problems/Pain Stated Complaint: DENTAL PAIN/BROKEN TOOTH Nursing Triage Note: PT STATES HER TOOTH BROKE WHILE EATING 1 HR AGO AND SHE IS IN A LOT OF PAIN, HAS TAKEN 1200MG IBUPROFEN WITH NO RELIEF. Source: patient History of Present Illness Time seen by provider: 18:08 Initial Comments PT STATES SHE WAS EATING A BURRITO 1 HOUR AGO AND A PIECE OF HER TOOTH BROKE OFF C/O PAIN IN TOOTH SINCE THEN STATES SHE HAS CHRONIC PROBLEMS WITH TEETH, BUT HAS NOT SEEN A DENTIST IN YEARS NO SWELLING TO GUMS OR JAW NO FEVER NO PAIN TO THIS TOOTH PRIOR TO BREAKING IT PCP: DR. MORENO Allergies and Home Medications Allergies Coded Allergies: No Known Drug Allergies (Unverified , 06/20/14) Home Medications Amoxicillin 875 Mg Tablet, 875 MG PO BID, #20 Prescribed by: SOURAV SEGURA on 04/27/171813 Docusate Sodium 100 Mg Capsule, 100 MG PO BID, #40 Prescribed by: ELICEO WHATLEY on 12/10/16 0854 Hydrocodone/Acetaminophen 1 Each Tablet, 1-2 TAB PO Q4H PRN for PAIN-MODERATE TO SEVERE, #50 Prescribed by: ELICEO WHATLEY on 12/10/16 0854 Ibuprofen 600 Mg Tablet, 600 MG PO Q6H PRN for PAIN-MILD TO MODERATE, #80 Prescribed by: ELICEO WHATLEY on 12/10/16 0854 Lidocaine HCl 15 Ml Solution, 1-2 ML MM Q 1-2 HOURS, #100 Prescribed by: SOURAV SEGURA on 04/27/171813 Naproxen 500 Mg Tablet, 500 MG PO BID, #20 Prescribed by: SOURAV SEGURA on 04/27/174 Vit W-Ca,Fe,FA(<1 mg) 1 Each Tablet, 1 EACH PO DAILY, (Reported) Review of Systems Constitutional: no symptoms reported Eyes: No Symptoms Reported Ears: No Symptoms Reported Nose: no symptoms reported Mouth: see HPI Throat: no symptoms reported Respiratory: no symptoms reported Cardiovascular: no symptoms reported Gastrointestinal: no symptoms reported LMP: Apr 27, 2017 (NO CONTROL) Musculoskeletal: no symptoms reported Skin: no symptoms reported Neurological: No Symptoms Reported Hematologic/Lymphatic: No Symptoms Reported Immunological/Allergic: no symptoms reported Past Qqdumqc-Higjil-Senbvp Hx Patient Social History Alcohol Use: Denies Use Recreational Drug Use: Yes (THC) Smoking Status: Current Everyday Smoker (1/2 PPPD) Type Used: Cigarettes Recent Foreign Travel: No Contact w/Someone Who Travel: No Recent Infectious Disease Expo: No Recent Hopitalizations: No Seasonal Allergies Seasonal Allergies: No Surgeries History of Surgeries: Yes ( X 1) Surgeries: Section Respiratory History of Respiratory Disorde: No Cardiovascular History of Cardiac Disorders: No Neurological History of Neurological Disord: No Reproductive System : No Hx Reproductive Disorders: No Genitourinary History of Genitourinary Disor: No Gastrointestinal History of Gastrointestinal Di: No Musculoskeletal History of Musculoskeletal Dis: No Endocrine History of Endocrine Disorders: No HEENT History of HEENT Disorders: Yes (CHRONIC DENTAL PROBLEMS) Cancer History of Cancer: No Psychosocial History of Psychiatric Problem: No Integumentary History of Skin or Integumenta: No Blood Transfusions History of Blood Disorders: No Adverse Reaction to a Blood Tr: No Family Medical History Family Medial History: FH: spinal stenosis (Brother) Physical Exam Vital Signs Vital Sign - Last 12Hours 04/27/17 18:07 Temp 96.4 Pulse 77 Resp 16 B/P (MAP) 135/72 General Appearance: WD/WN, no apparent distress Eyes: bilateral eye normal inspection, bilateral eye PERRL, bilateral eye EOMI Ears: bilateral ear auricle normal, bilateral ear canal normal, bilateral ear TM normal Mouth/Throat: pharynx normal, other (LEFT SECOND MOLAR WITH CARIES AND PIECE OF TOOTH BROKEN TOOTH. NO BLEEDING, NO SWELLING TO GUMS OR JAW) Neck: non-tender, full range of motion, supple, normal inspection Cardiovascular: regular rate, rhythm, no murmur Respiratory: normal breath sounds, no respiratory distress, no accessory muscle use Gastrointestinal: soft Neurologic/Psychiatric: oil dispatcher II-XII nml as tested, no motor/sensory deficits, alert, normal mood/affect, oriented x 3 Skin: normal color, warm/dry Progress/Results/Core Measures Results/Orders Vital Signs/I&O Vital Sign - Last 12Hours 04/27/17 18:07 Temp 96.4 Pulse 77 Resp 16 B/P (MAP) 135/72 Blood Pressure Mean: 93 Departure Impression Impression: Primary Impression: Dental caries Additional Impression: Broken tooth Disposition: 01 HOME, SELF-CARE Condition: Stable Departure-Patient Inst. Referrals: SARAH MORENO,LOCAL PHYSICIAN (PCP) Primary Care Physician Patient Instructions: Fractured Tooth (DC), Dental Pain (DC), Tooth Decay, Adult (DC) Add. Discharge Instructions: FREQUENT SALT WATER SWISHES FOLLOW UP WITH DENTIST OF CHOICE SOON POSSIBLE All discharge instructions reviewed with patient and/or family. Voiced understanding. Scripts Naproxen (Naproxen) 500 Mg Tablet 500 MG PO BID, #20 TAB Prov: SOURAV SEGURA DO 04/27/17 Lidocaine HCl (Lidocaine HCl Viscous) 15 Ml Solution 1-2 ML MM Q 1-2 HOURS for Pain, #100 ML Prov: SOURAV SEGURA DO 04/27/17 Amoxicillin (Amoxicillin) 875 Mg Tablet 875 MG PO BID for INFECTION, #20 TAB Prov: SOURAV SEGURA DO 04/27/17 SOURAV SEGURA DO Apr 27, 2017 18:14
[2017-04-27 18:47] VITALS: BP 135/72
== END 2017-04-27 18:47 | disposition home or self-care (01) ==
LOC: EDUNIT# 17:47 → ER 17:49
DX: K02.9 Dental caries, unspecified (principal); K03.81 Cracked tooth; F17.210 Nicotine dependence, cigarettes, uncomplicated; F11.10 Opioid abuse, uncomplicated; Z87.59 Personal history of other complications of pregnancy, childbirth and the puerperium
CPT/HCPCS: 99282

== ENCOUNTER 2018-01-10 10:18 | Outpatient (CLI) | payer MEDICAID ==
[~2018-01-10] VITALS: Ht 160 cm; Wt 59.0 kg
[~2018-01-10 10:18] MED LIST changes: +ACHD5005 PO; +AMOX875T2 PO; -HYDR-3812 PO; +LIDO15SO2 MM; +NAPR-915 PO; +ONDA4TAB8 SL
[2018-01-11] MEDS ORDERED: ACHD5005 PO (11:30)
== END 2018-01-10 10:49 ==
LOC: PREOP 10:18
PROVIDERS: ATTEND Surgery
DX: Z01.818 Encounter for other preprocedural examination (principal)

== ENCOUNTER 2018-01-11 09:00 | Day surgery (SDC) | payer MEDICAID ==
[~2018-01-11] VITALS: Ht 160 cm; Wt 59.0 kg
[2018-01-11] MEDS ORDERED: ONDANSETRON 4 MG/2 ML (SDV) Z0FRAN ONE (09:09)
[2018-01-11] MEDS ORDERED: proPOfol 200 MG/20 ML (DIPRIVAN) VIAL IV ONE (09:09)
[2018-01-11] MEDS ORDERED: MIDAZOLAM 2 MG/2 ML (VERSED) VIAL ONE (09:09)
[2018-01-11] MEDS ORDERED: LIDOCAINE PF 2% 5 ML (XYLOCAINE) VIAL ONE (09:09)
[2018-01-11] MEDS ORDERED: fentaNYL INJECTION 100 MCG/2 ML AMP ONE ×3 (09:09→11:07)
[2018-01-11] MEDS ORDERED: DEXAMETHASONE 10 MG/ML (DECADRON) 1 ML VIAL ONE (09:09)
[2018-01-11] MEDS ORDERED: ROCURONIUM 10 MG/ML 5 ML SYRINGE IV ONE (09:10)
[2018-01-11] MEDS ORDERED: LACTATED RINGERS 1,000 ML IV ONE (09:10)
--- NOTE | 2018-01-11 09:11 | Progress Note-Pre Operative ---
Pre-Operative Progress Note H&P Reviewed The H&P was reviewed, patient examined and no changes noted. Date Seen by Provider: Jan 07, 2018 Time Seen by Provider: 16:00 Date H&P Reviewed: Jan 11, 2018 Time H&P Reviewed: 09:11 Pre-Operative Diagnosis: Gallstones AGUILA POSADAS MD Jan 11, 2018 9:11 am
[2018-01-11 09:15] VITALS: BP 106/61
[2018-01-11] MEDS ORDERED: ceFAZolin INJECTION 1,000 MG in NS (IVPB) 50 ML IV ONE (09:15)
[2018-01-11] MEDS ORDERED: BUP/EPI 0.5% 1:200,000 (SENSORCAINE) 30 ML VIAL ONE (09:25)
[2018-01-11] MEDS ORDERED: NS (IVPB) 50 ML ONE (09:31)
[2018-01-11] MEDS ORDERED: ceFAZolin 1,000 MG (ANCEF) VIAL ONE (09:31)
[2018-01-11] MEDS ORDERED: metroNIDAZOLE 500MG/100ML IVPB 100 ML ONE (09:31)
[2018-01-11 09:42] LABS: AMPHETAMINE SCREEN, URINE NEGATIVE (NEGATIVE); BARBITURATE SCREEN URINE NEGATIVE (NEGATIVE); BENZODIAZEPINES SCREEN URINE NEGATIVE (NEGATIVE); CANNABINOID SCREEN, URINE POSITIVE (NEGATIVE); COCAINE SCREEN URINE NEGATIVE (NEGATIVE); HCG,QUALITATIVE URINE NEGATIVE (NEGATIVE); METHADONE STAT NEGATIVE (NEGATIVE); METHAMPHETAMINE SCREEN URINE S NEGATIVE (NEGATIVE); OPIATE SCREEN URINE NEGATIVE (NEGATIVE); OXYCODONE STAT NEGATIVE (NEGATIVE); PROPOXYPHENE STAT NEGATIVE (NEGATIVE); TRICYCLIC ANTIDEPRESSANTS SCRE NEGATIVE (NEGATIVE)
[2018-01-11] MEDS: metroNIDAZOLE 500MG/100ML IVPB 100 ML IV ONE ×2 (09:55→09:59)
[2018-01-11] MEDS ORDERED: DESFLURANE (SUPRANE) 15 ML INHAL SOLN ONE ×3 (10:15→11:25)
[2018-01-11] MEDS ORDERED: morphine INJ 10 MG/ML 1ML (SYR OR VIAL) ONE (10:29)
[2018-01-11] MEDS ORDERED: GLYCOPYRROLATE 0.2 MG/ML (ROBINUL) 2 ML VIAL ONE ×2 (11:04→11:23)
[2018-01-11] MEDS ORDERED: NEOSTIGMINE 1 MG/ML 5 ML SYRINGE ONE (11:04)
[2018-01-11] MEDS ORDERED: KETOROLAC 30 MG/ML VIAL ONE (11:24)
--- NOTE | 2018-01-11 11:29 | Operative Report ---
Operative Report Date of Procedure/Surgery Jan 11, 2018 Surgeon (s) AGUILA POSADAS MD Instrument Maker And Repairer (s): n/a Post-Operative Diagnosis Same. Normal cholangiogram Procedure Performed Robotic-assisted cholecystectomy Intraoperative cholangiogram Description of Procedure Anesthesia Type: General Estimated blood loss (mL): Minimal Specimen(s) collected/removed Gallbladder Description of the Procedure Indication for the procedure: This lady presented with symptomatic, multiple small gallstones. He was offered cholecystectomy using minimally invasive technique with robotic assistance and intraoperative cholangiogram, to rule out choledocholithiasis. Informed consent was obtained after reviewing the operative details complications of wound infection and bile leak. Description of the procedure: She was placed supine on the operative table and general anesthesia induced. A gram of Ancef and 500 mg of Flagyl were administered intravenously as prophylaxis against wound infection. Sequential compression devices placed around her legs, to minimize the risk of venous thrombosis. Abdomen was prepared and draped in the usual sterile manner. Pneumoperitoneum was established using a Veress needle introduced over the supraumbilical region. A 12 mm trocar was placed and anatomy visualized using the high definition, 3-dimensional laparoscope, associated with da Robson system. Under direct view, I placed an 8 mm trocar over each side of the abdomen, followed by a 5 mm trocar over the left upper quadrant. The patient was then turned into reverse Trendelenburg position, with the right side tilted up the robotic system was then docked in place. The gallbladder was rather tense with multiple stones. The fundus was retracted cephalad and the infundibulum grasped with Cadiere forceps. Peritoneum overlying Calot's triangle was incised using the hook cautery, delineating the cystic duct and the artery. Cholangiogram was obtained using a Taut catheter. It revealed normal anatomy with no filling defects in the common bile duct. The contrast flowed freely into the duodenum. The catheter was then removed and the cystic duct controlled using locking clips. Cystic artery was managed in a similar fashion. Cholecystectomy was completed using the hook cautery. The gallbladder was then placed in an Endo Catch bag and removed via the supraumbilical trocar site. The fascia over this incision was closed using #1 Vicryl using the Ashish Guzman device. Skin incisions were closed using 4-0 Vicryl, in a subcuticular fashion. 0.5 percent Marcaine with epinephrine was infiltrated along the incisions both preemptively and at the conclusion of the operation. She tolerated the procedure well, was extubated in the operating room and taken to the recovery room in a stable condition. Findings of the Procedure See op report Allergies and Home Medications Allergies Coded Allergies: No Known Drug Allergies (Unverified , 06/20/14) Home Medications Ondansetron 4 Mg Tab.rapdis, 4 MG SL Q4H PRN for NAUSEA/VOMITING-1ST LINE Prescribed by: MARLON HOWARD on 12/31/17 0200 Patient Home Medication List Home Medication List Reviewed: Yes AGUILA POSADAS MD Jan 11, 2018 11:29 am
[2018-01-11] MEDS ORDERED: ACHD5005 PO (11:30)
--- NOTE | 2018-01-11 11:30 | Discharge Inst-Simple/Standard ---
Discharge Inst-Standard Discharge Medications New, Converted or Re-Newed RX: RX on Chart Patient Instructions/Follow Up Plan of Care/Instructions/FU: Band-Aids off in 48 hours. Incentive spirometry. Follow-up in 3 weeks. Activity as Tolerated: Yes Discharge Diet: No Restrictions AGUILA POSADAS MD Jan 11, 2018 11:30 am
--- NOTE | 2018-01-11 11:33 | Diagnostic Imaging Report ---
INDICATION: Gallbladder disease. FINDINGS: There is no intrahepatic or extrahepatic biliary ductal dilatation. There are no intrinsic or extrinsic filling defects about the common bile duct. There is free flow of contrast in the duodenum. IMPRESSION: Unremarkable intraoperative cholangiogram, status post cholecystectomy. Please correlate with the formal operative report. Dictated by: Dictated on workstation # [id number]
[2018-01-11] MEDS ORDERED: ONDANSETRON 4 MG/2 ML (SDV) Z0FRAN IVP PRN (11:45)
[2018-01-11] MEDS ORDERED: MEPERIDINE (DEMEROL) INJ 50 MG/ML IVP PRN (11:45)
[2018-01-11] MEDS ORDERED: fentaNYL INJECTION 100 MCG/2 ML AMP IVP PRN (11:45)
[2018-01-11] MEDS: HYDROmorphone 1 MG/ML (DILAUDID) 1 ML SYRINGE IV PRN ×2 (12:05→12:15)
[2018-01-11 12:45] VITALS: BP 109/66
[2018-01-11 13:15] VITALS: BP 106/61
--- NOTE | 2018-01-11 13:33 | Anesthesia-General Post-Op ---
General Patient Condition Mental Status/LOC: Same as Preop Cardiovascular: Satisfactory Nausea/Vomiting: Absent Respiratory: Satisfactory Pain: Controlled Complications: Absent Post Op Complications Complications None Follow Up Care/Instructions Patient Instructions None needed. Anesthesia/Patient Condition Patient Condition Patient is doing well, no complaints, stable vital signs, no apparent adverse anesthesia problems. No complications reported per nursing. ACACIA ZAVALA CRNA Jan 11, 2018 13:33
[2018-01-11 13:45] VITALS: BP 105/73
[2018-01-11 14:10] VITALS: BP 111/64
== END 2018-01-11 14:10 | disposition home or self-care (01) ==
LOC: SDC 09:00
PROVIDERS: ATTEND Surgery
DX: K80.10 Calculus of gallbladder with chronic cholecystitis without obstruction (principal); F17.210 Nicotine dependence, cigarettes, uncomplicated
CPT/HCPCS: 80306; 84703; 87081; 94664

== ENCOUNTER 2018-04-02 12:19 | Emergency (ER) | payer MEDICAID ==
[~2018-04-02] VITALS: Ht 160 cm; Wt 57.6 kg
--- NOTE | 2018-04-02 12:46 | ED EENT ---
History of Present Illness General Chief Complaint: Dental Problems/Pain Stated Complaint: TOOTH PAIN Nursing Triage Note: PT AMB TO ROOM #9 W/O DIFFICULTY. A&OX4. CO UPPER RT CENTRAL INCISOR PAIN THAT RADIATES TO RT TOP AND BOTTOM JAW. PT REPORTS PAIN BEGAN APPROX ONE WK AGO WITH PAIN INCREASING. REPORTS POSITIVE TEST ON SUNDAY AND HAS BEEN "SCARED TO TAKE ANYTHING FOR THE PAIN." REPORTS TO HAVE HAD APPOINTMENT TO HAVE UPPER TEETH PULLED BUT APPT WAS CANCELED AND HAS NOT RESCHEDULED. Source: patient Exam Limitations: no limitations History of Present Illness Date Seen by Provider: Apr 02, 2018 Time Seen by Provider: 12:30 Initial Comments Patient is a 23 year old female who presents the the emergency room with complaints of pain and gum swelling to her front teeth. She reports that she has had numerous dental caries and past dental infections with several teeth pulled in the past. She reports that she was told she will need to have all of her teeth pulled on the top soon by her dentist and had an appointment for this but canceled it and has not rescheduled. She also states that she recently found out she is and has not taken any medication due to this finding. Timing/Duration: last week Location: mouth, dental Prearrival Treatment: no prearrival treatment Associated Symptoms: tooth pain Allergies and Home Medications Allergies Coded Allergies: No Known Drug Allergies (Unverified , 06/20/14) Home Medications Amoxicillin 500 Mg Capsule, 500 MG PO TID Prescribed by: DANDY CHAUDHARI on 04/02/18 1256 Hydrocodone Bit/Acetaminophen 1 Tab Tab, 1-2 TAB PO 4-6HR PRN for PAIN Prescribed by: AGUILA POSADAS on 01/11/18 1130 Ondansetron 4 Mg Tab.rapdis, 4 MG SL Q4H PRN for NAUSEA/VOMITING-1ST LINE Prescribed by: MARLON HOWARD on 12/31/17 0200 Patient Home Medication List Home Medication List Reviewed: Yes Review of Systems Review of Systems Constitutional: see HPI; No chills, No fever Mouth: see HPI, pain, swelling : Yes LMP: Feb 11, 2018 All Other Systems Reviewed Negative Unless Noted: Yes Past Mkuimui-Pfqats-Udeqph Hx Past Med/Social Hx: Reviewed Nursing Past Med/Soc Hx Patient Social History Alcohol Beverage of Choice: Cheap Liquor, Vodka Drug of Choice: marjiuana Type Used: Cigarettes Recent Foreign Travel: No Contact w/Someone Who Travel: No Recent Infectious Disease Expo: No Recent Hopitalizations: No Seasonal Allergies Seasonal Allergies: No Past Medical History Surgeries: Yes Section Respiratory: No Cardiac: No Neurological: No Reproductive Disorders: No Genitourinary: No Gastrointestinal: No Gall Bladder Disease Musculoskeletal: No Endocrine: No HEENT: Yes (CHRONIC DENTAL PROBLEMS) Cancer: No Psychosocial: No Integumentary: No Blood Disorders: No Adverse Reaction/Blood Tranf: No Family Medical History Reviewed Nursing Family Hx FH: spinal stenosis (Brother) Physical Exam Vital Signs Vital Signs - First Documented 04/02/18 12:26 Temp 97.5 Pulse 92 Resp 16 B/P (MAP) 132/69 (90) Pulse Ox 99 O2 Delivery Room Air Height, Weight, BMI Height: 5'3.00" Weight: 127lbs. 0.0oz. 57.887122bh; 23.0 BMI Method:Stated General Appearance: WD/WN, no apparent distress Eyes: bilateral eye normal inspection, bilateral eye PERRL, bilateral eye EOMI Nose: normal inspection Mouth/Throat: dental tenderness Neck: non-tender, full range of motion, supple, normal inspection Cardiovascular: normal peripheral pulses, regular rate, rhythm, no edema, no gallop, no JVD, no murmur Respiratory: chest non-tender, lungs clear, normal breath sounds, no respiratory distress, no accessory muscle use Neurologic/Psychiatric: alert, normal mood/affect, oriented x 3 Skin: normal color, warm/dry Progress/Results/Core Measures Results/Orders My Orders Orders - DANDY CHAUDHARI Amoxicillin Capsule (Polymox Capsule) (04/02/18 12:49) Vital Signs/I&O 04/02/18 13:00 Temp 97.5 Pulse 90 Resp 18 B/P (MAP) 132/69 (90) Pulse Ox 99 O2 Delivery Room Air Blood Pressure Mean: 90 Progress Progress Note : Time: 12:50 Progress Note I have seen and evaluated the patient. I will be prescribing amoxicillin for infection. She has an appointment with Dr. Pedraza next week for initial visit. She was instructed to take Tylenol for pain. She agrees with plan of care, return precautions were given. Departure Impression Primary Impression: Dental caries extending into dentine Additional Impression: Dental infection Disposition: 01 HOME, SELF-CARE Condition: Stable/Unchanged Departure-Patient Inst. Decision time for Depature: 12:55 Referrals: SARAH MORENO DO (PCP/Family) Primary Care Physician Patient Instructions: Dental Pain (DC), Tooth Abscess (DC) Add. Discharge Instructions: Take medications as directed. Call today for an appointment time at [facility] for further evaluation. You may use Tylenol as directed by the bottle for pain. Return back to the emergency room for any worsening symptoms or concerns as needed. All discharge instructions reviewed with patient and/or family. Voiced understanding. Scripts Amoxicillin (Amoxicillin) 500 Mg Capsule 500 MG PO TID for 7 Days, #21 CAP Prov: DANDY CHAUDHARI 04/02/18 Images Mouth/Nose 1 - Caries 2 - Swelling DANDY CHAUDHARI Apr 02, 2018 12:46
[2018-04-02] MEDS ORDERED: AMOXICILLIN 500 MG (POLYMOX) CAP PO STA (12:49)
[2018-04-02] MEDS ORDERED: AMOX500C2 PO (12:56)
[2018-04-02 13:00] VITALS: BP 132/69
== END 2018-04-02 13:02 | disposition home or self-care (01) ==
LOC: ER 12:19 → EDUNIT# 12:19 → ER 13:02
DX: O99.89 Other specified diseases and conditions complicating pregnancy, childbirth and the puerperium (principal); K02.7 Dental root caries; K04.7 Periapical abscess without sinus; Z98.890 Other specified postprocedural states; Z3A.00 Weeks of gestation of pregnancy not specified
CPT/HCPCS: 99283

== ENCOUNTER → 2018-07-04 | Outpatient (CLI) | payer MEDICAID ==
[~2018-07-04] MED LIST changes: +AMOX500C2 PO
--- NOTE | 2018-07-04 14:07 | Diagnostic Imaging Report ---
INDICATION: survey. TECHNIQUE: Multiple real-time grayscale images were obtained over the gravid uterus. COMPARISON: None. FINDINGS: There is a single live fetus in a cephalic presentation. heart rate was recorded at 147 beats per minute. Placenta is posterior. Amniotic fluid volume is normal. survey demonstrates bladder and stomach to be unremarkable. The brain is unremarkable. There is a four-chamber heart. There is a three-vessel cord with normal insertion. kidneys and spine are not as well visualized on today's study and followup could be performed. Biometrical measurements are as follows: Biparietal 4.74 cm, age 20 weeks 3 days. Head circumference 18.14 cm, age 20 weeks 4 days. Abdominal circumference 14.16 cm, age 19 weeks 4 days. Femur length 3.03 cm, age 19 weeks 3 days. Sonographic estimate age: 20 weeks 0 days. Sonographic estimated date of delivery: 11/21/2018. Estimated Weight: 301 gm (+/- 44 gm). LMP percentile: 14%. heart rate: 147 beats per minute. number: 1 of 1. IMPRESSION: Single live IUP at 20 weeks 0 days gestational age. Estimated date of confinement sonographically is 11/21/2018. Note is made that the kidneys and spine are somewhat limited in evaluation today. Followup ultrasound could be performed. Dictated by: Dictated on workstation # [id number]
== END ==
LOC: RAD 11:03
PROVIDERS: ATTEND Obstetrics & Gynecology
DX: Z36.89 Encounter for other specified antenatal screening (principal); Z3A.20 20 weeks gestation of pregnancy
CPT/HCPCS: 76805

== ENCOUNTER 2018-11-12 00:23 | Inpatient (IN) | payer MEDICAID ==
[~2018-11-12] VITALS: Ht 160 cm; Wt 69.9 kg
[2018-11-12] VITALS (37 sets, daily range): BP systolic 97–135; BP diastolic 49–84
--- NOTE | 2018-11-12 00:25 | NUR ---
RAAD HARPER presented to unit via from ED, accompanied by S/O, with c/o LABOR. RAAD HARPER weighed, gowned, voided, and to bed. EFHM and TOCO applied, VS taken. RAAD HARPER oriented to bed controls, call light, TV, heat, and A/C controls.
[2018-11-12] MEDS ORDERED: D5 LR IV SOLUTION 1,000 ML IV ONE (00:39)
[2018-11-12] MEDS ORDERED: CATHETER FLUSH 10 ML SYR IV PRN (00:45)
[2018-11-12] MEDS ORDERED: D5 LR IV SOLUTION 1,000 ML IV SCH (00:45)
[2018-11-12] MEDS ORDERED: SUFENTA 0.6MCG/ML BUPIVA 0.125 100 ML ONE (00:53)
[2018-11-12 01:02] LABS: BASOPHILS % (AUTO) 0 % (0-10); EOSINOPHILS # (AUTO) 0.1 10^3/uL (0.0-0.3); EOSINOPHILS % (AUTO) 0 % (0-10); HEMATOCRIT 31 % (35-52); HEMOGLOBIN 10.4 G/DL (11.5-16.0); LYMPHOCYTES % (AUTO) 15 % (12-44); MEAN CORPUSCULAR HEMOGLOBIN 30 PG (25-34); MEAN CORPUSCULAR HGB CONC 34 G/DL (32-36); MEAN CORPUSCULAR VOLUME 88 FL (80-99); MEAN PLATELET VOLUME 10.2 FL (7.4-10.4); MONOCYTES # (AUTO) 1.1 X 10^3 (0.0-1.0); MONOCYTES % (AUTO) 6 % (0-12); NEUTROPHILS # (AUTO) 15.5 X 10^3 (1.8-7.8); NEUTROPHILS % (AUTO) 79 % (42-75); PLATELET COUNT 261 10^3/uL (130-400); RED CELL DISTRIBUTION WIDTH 14.2 % (10.0-14.5); WHITE BLOOD COUNT 19.7 10^3/uL (4.3-11.0)
[2018-11-12] MEDS ORDERED: BUPIVACAINE 0.25% 30 ML (SENSORCAINE) VIAL ONE (01:39)
[2018-11-12] MEDS ORDERED: LIDOCAINE PF 2% 5 ML (XYLOCAINE) VIAL ONE (01:39)
[2018-11-12] MEDS ORDERED: fentaNYL INJECTION 100 MCG/2 ML AMP ONE (01:40)
[2018-11-12] MEDS ORDERED: LACTATED RINGERS 1,000 ML IV SCH (02:05)
[2018-11-12] MEDS ORDERED: diphenhydrAMINE 50 MG/ML INJ (BENADRYL) IV PRN (02:15)
[2018-11-12] MEDS ORDERED: ONDANSETRON 4 MG/2 ML (SDV) Z0FRAN IV PRN (02:15)
[2018-11-12] MEDS ORDERED: NALOXONE 0.4 MG/ML 1 ML (NARCAN) VIAL IV PRN (02:15)
[2018-11-12] MEDS ORDERED: EPIDURAL (SUFENTA 0.6MCG/ML BUPIVA 0.125%) 100 ML BAG EPI PRN (02:15)
--- OUTSIDE RECORDS SUMMARY | 2018-11-12 03:07 | XMS REPORT ---
Author Author ELICEO MERCADO Organization [facility] [place] [facility] Address [address] [place] [address] Care Team Providers Care Tetryl Boiling Tub Operator Name Role Phone ELICEO MERCADO Unavailable PROBLEMS No Known Problems ALLERGIES No Information ENCOUNTERS Encounter Location Date Diagnosis [facility] [place] [facility] [address] [address] Jun, [facility] [place] [facility] [address] [address] Jun, [facility] [address] [phone] Jun, Dental abscess K04.7 [facility] [address] [id number] November, Dental caries K02.9 [facility] [address] [id number] Sep, Dental examination Z01.20 [facility] [id number] [place] [phone] November, Poison hitesh L23.7 [facility] [place] [facility] [id number] [place] [address] Oct, [facility] [place] [facility] [id number] [place] [address] Jul, [facility] [place] [facility] [address] [address] Jul, [facility] [place] [facility] [id number] [place] [address] Dec, [facility] [place] [facility] [address] [address] Dec, [facility] [place] [facility] [address] [id number] [place] [address] Sep, [facility] [place] [facility] [address] [id number] [place] [address] Sep, [facility] [place] [facility] [address] [id number] [place] [address] Jul, [facility] [place] [facility] [address] [id number] [place] [address] Jul, [facility] [place] [facility] [address] [id number] [place] [address] Apr, [facility] [place] [facility] [address] [id number] [place] [address] Apr, [facility] [place] [facility] [address] [id number] [place] [address] Feb, [facility] [place] [facility] [address] [id number] [place] [address] November, [facility] [place] [facility] [address] [id number] [place] [address] Aug, [facility] [place] [facility] [address] [id number] [place] [address] May, [facility] [place] [facility] [address] [id number] [place] [address] May, [facility] [place] [facility] [address] [id number] [place] [address] Apr, [facility] [place] [facility] [address] [id number] [place] [address] Mar, [facility] [place] [facility] [address] [id number] [place] [address] November, [facility] [place] [facility] [address] [id number] [place] [address] Sep, [facility] [place] [facility] [address] [facility] [id number] [place] [address] Aug, [facility] [place] [facility] [address] [facility] [id number], [place] [address] May, [facility] [place] [facility] [address] [facility] [id number] [place] [address] May, IMMUNIZATIONS No Known Immunizations SOCIAL HISTORY Never Assessed REASON FOR VISIT dental appt PLAN OF CARE VITAL SIGNS MEDICATIONS Unknown Medications RESULTS No Results PROCEDURES No Known procedures INSTRUCTIONS MEDICATIONS ADMINISTERED No Known Medications MEDICAL (GENERAL) HISTORY Type Description Date Surgical History Cholecystectomy 01/2018
--- OUTSIDE RECORDS SUMMARY | 2018-11-12 03:07 | XMS REPORT ---
Author Author LEAH LAMB Organization [facility] Address [address] [place] [address] Care Team Providers Care Reserves Clerk Name Role Phone LEAH LAMB Unavailable PROBLEMS Type Condition ICD9-CM Code SPT34-IR Code Onset Dates Condition Status SNOMED Code Problem Screening examination for venereal disease V74.5 Active 776096418 Problem Unspecified contraceptive management V25.9 Active 818341564 Problem Counseling on other sexually transmitted diseases V65.45 Active 908077391 Problem Hordeolum internum 373.12 Active 219198686 Problem Acute pharyngitis 462 Active 582627162 Problem General counseling for initiation of other contraceptive measures V25.02 Active 858996445500590 Problem Surveillance of other previously prescribed contraceptive method V25.49 Active 205153500 Problem GARDASIL (HPV) DX V04.89 Active 743668227 Problem Routine general medical examination at health care facility V70.0 Active [id number] ALLERGIES No Known Allergies ENCOUNTERS Encounter Location Date Diagnosis [facility] [id number] [place] [id number] November, Dental caries K02.9 [facility] [id number] [place] [address] [id number] Sep, Dental examination Z01.20 [facility] [id number] [place] [address] November, Poison hitesh L23.7 [facility] [id number] [place] [address] Oct, [facility] [id number] [place] [address] Jul, [facility] [address] [address] Jul, [facility] [place] [facility] [address] [id number] [place] [address] Dec, [facility] [place] [facility] [address] [id number] [place] [address] Dec, [facility] [place] [facility] [address] [id number] [place] [address] Sep, [facility] [place] [facility] [address] [id number] [place] [address] Sep, [facility] [place] [facility] [address] [id number] [place] [address] Jul, [facility] [place] [facility] [address] [id number] [place] [address] Jul, [facility] [place] [facility] [address] [id number] [place] [address] Apr, [facility] [place] [facility] [address] [id number] [place] [address] Apr, [facility] [place] [facility] [address] [id number] [place] [address] Feb, [facility] [place] [facility] [address] [id number] [place] [address] November, [facility] [place] [facility] [address] [id number] [place] [address] Aug, [facility] [place] [facility] [address] [id number] [place] [address] May, [facility] [place] [facility] [address] [id number] [place] [address] May, [facility] [place] [facility] [address] [id number] [place] [address] Apr, [facility] [place] [facility] [address] [id number] [place] Mar, [facility] [place] [facility] [address] [facility] [id number] [place] [address] November, [facility] [address] [facility] [id number] [place] [address] Sep, [facility] [address] [facility] [id number] [place] [address] Aug, [facility] [address] [facility] [id number], [place] [address] May, [facility] [address] [facility] [id number] [place] [address] May, IMMUNIZATIONS No Known Immunizations SOCIAL HISTORY Never Assessed REASON FOR VISIT multi TE PLAN OF CARE Activity Details Follow Up prn Reason:te remaining teeth- 1.5 hours VITAL SIGNS Blood pressure systolic 124 mmHg 2017-11-12 Blood pressure diastolic 76 mmHg 2017-11-12 MEDICATIONS Medication Instructions Dosage Frequency Start Date End Date Duration Status Valium 10 MG Orally Once a day 1 tablet one hour before dental visit 24h November, 1 days Active [place] 5-325 MG Orally every 6 hrs 1 tablet as needed 6h November, November, 4 days Active Amoxicillin 500 MG Orally every 8 hrs 1 capsule 8h November, November, 7 days Active [place] 5-325 MG Orally every 6 hrs 1 tablet as needed 6h November, November, 4 days Active RESULTS No Results PROCEDURES Procedure Date Ordered Result Body Site EXTRAC ERUPTED TOOTH/EXPOSED ROOT November 12, 2017 EXTRAC ERUPTED TOOTH/EXPOSED ROOT November 12, 2017 EXTRAC ERUPTED TOOTH/EXPOSED ROOT November 12, 2017 EXTRAC ERUPTED TOOTH/EXPOSED ROOT November 12, 2017 EXTRAC ERUPTED TOOTH/EXPOSED ROOT November 12, 2017 EXTRAC ERUPTED TOOTH/EXPOSED ROOT November 12, 2017 INSTRUCTIONS MEDICATIONS ADMINISTERED No Known Medications
--- OUTSIDE RECORDS SUMMARY | 2018-11-12 03:07 | XMS REPORT ---
Author Author LEAH LAMB Organization [facility] Address [address] [place] [address] Care Team Providers Care Environmental Field Services Technician Name Role Phone LEAH LAMB Unavailable PROBLEMS Type Condition ICD9-CM Code IJR49-UK Code Onset Dates Condition Status SNOMED Code Problem Screening examination for venereal disease V74.5 Active 764187339 Problem Unspecified contraceptive management V25.9 Active 856931107 Problem Counseling on other sexually transmitted diseases V65.45 Active 540250523 Problem Hordeolum internum 373.12 Active 565269018 Problem Acute pharyngitis 462 Active 104740644 Problem General counseling for initiation of other contraceptive measures V25.02 Active 046191560196518 Problem Surveillance of other previously prescribed contraceptive method V25.49 Active 817669488 Problem GARDASIL (HPV) DX V04.89 Active 894129359 Problem Routine general medical examination at health care facility V70.0 Active 309721387 ALLERGIES No Known Allergies ENCOUNTERS Encounter Location Date Diagnosis [facility] [id number] [place] [phone] November, Dental caries K02.9 [facility] [id number] [place] [id number] Sep, Dental examination Z01.20 [facility] [address] [place] [address] November, Poison hitesh L23.7 [facility] [id number] [place] [address] Oct, [facility] [id number] [place] [address] Jul, [facility] [address] [address] Jul, [facility] [place] [facility] [address] [id number] [place] [address] Dec, [facility] [place] [facility] [address] [id number] [place] [address] Dec, [facility] [place] [facility] [address] [id number] [place] [address] Sep, [facility] [place] [facility] [address] [id number] [place] [address] Sep, [facility] [place] [facility] [address] [id number] [place] [address] Jul, [facility] [place] [facility] [address] [id number] [place] [address] Jul, [facility] [place] [facility] [address] [id number] [place] [address]- [address] Apr, [facility] [place] [facility] [address] [id number] [place] [address] Apr, [facility] [place] [facility] [address] [id number] [place] [address]- [address] Feb, [facility] [place] [facility] [address] [id number] [place] [address] November, [facility] [place] [facility] [address] [id number] [place] [address] Aug, [facility] [place] [facility] [address] [id number] [place] [address] May, [facility] [place] [facility] [address] [id number] [place] [address] 8[address] May, [facility] [place] [facility] [address] [id number] [place] [address] Apr, [facility] [place] [facility] [address] [id number] [place] [address] Mar, [facility] [place] [facility] [address] [facility] [id number] [place] [address] November, [facility] [address] [facility] [id number], [place] [address] Sep, [facility] [address] [id number] [address] Aug, [facility] [address] [facility] [id number], [place] [address] May, [facility] [address] [facility] [id number] [place] [address] May, IMMUNIZATIONS No Known Immunizations SOCIAL HISTORY Never Assessed REASON FOR VISIT vickie PLAN OF CARE Activity Details Follow Up prn Reason:MULTI TE VITAL SIGNS MEDICATIONS No Known Medications RESULTS No Results PROCEDURES Procedure Date Ordered Result Body Site LTD ORAL EVALUATION - PROBLEM FOCUS September 10, 2017 INTRAORL-PERIAPICAL 1 FILM [id number] September 10, 2017 PANORAMIC FILM SEE ALSO CODE [id number] September 10, 2017 INSTRUCTIONS MEDICATIONS ADMINISTERED No Known Medications
--- OUTSIDE RECORDS SUMMARY | 2018-11-12 03:08 | XMS REPORT | Continuity of Care Document ---
Author Organization Unknown Address Unknown Allergies Active Description Code Type Severity Reaction Onset Reported/Identified Relationship to Patient Clinical Status Yes No Known Drug Allergies [id number] Drug Allergy Unknown N/A 06/20/2014 Medications There is no data. Problems Date Dx Coded Attending Type Code [...] DO V25.41 SURVEILLANCE OF CONTRACEPTIVE PILL 05/31/2010 NORM ARCE DO 625.3 DYSMENORRHEA 05/31/2010 NORM ARCE DO 626.4 IRREGULAR MENSTRUAL CYCLE 05/31/2010 NORM ARCE DO V25.41 SURVEILLANCE OF CONTRACEPTIVE PILL 05/31/2010 JAYCEE CORTÉS APRN 625.3 DYSMENORRHEA 05/31/2010 JAYCEE CORTÉS APRN 626.4 IRREGULAR MENSTRUAL CYCLE 05/31/2010 JAYCEE CORTÉS APRN V25.41 SURVEILLANCE OF CONTRACEPTIVE PILL 10/04/2011 V04.89 GARDASIL (HPV ) DX 10/04/2011 V04.89 GARDASIL (HPV ) DX 10/04/2011 NORM ARCE DO V04.89 GARDASIL (HPV) DX 10/04/2011 V04.89 GARDASIL (HPV ) DX 10/04/2011 PADILLA IRVIN APRN V04.89 GARDASIL (HPV) DX 10/04/2011 NORM ARCE DO V04.89 GARDASIL (HPV) DX 10/04/2011 NORM ARCE DO V04.89 GARDASIL (HPV) DX 10/04/2011 JAYCEE CORTÉS APRN V04.89 GARDASIL (HPV) DX 04/03/2012 373.12 HORDEOLUM INTERNUM 04/03/2012 373.12 HORDEOLUM INTERNUM 04/03/2012 NORM ARCE DO 373.12 HORDEOLUM INTERNUM 04/03/2012 373.12 HORDEOLUM INTERNUM 04/03/2012 PADILLA IRVIN APRN 373.12 HORDEOLUM INTERNUM 04/03/2012 NORM ARCE DO 373.12 HORDEOLUM INTERNUM 04/03/2012 NORM ARCE DO 373.12 HORDEOLUM INTERNUM 04/03/2012 JAYCEE CORTÉS APRN 373.12 HORDEOLUM INTERNUM 04/10/2012 V25.02 CONTRACEPTION - ANY METHOD 04/10/2012 V65.45 STD COUNSELING 04/10/2012 V74.5 STD SCREEN 04/10/2012 V25.02 CONTRACEPTION - ANY METHOD 04/10/2012 V65.45 STD COUNSELING 04/10/2012 V74.5 STD SCREEN 04/10/2012 ANASTACIA ARCE DOA K V25.02 CONTRACEPTION - ANY METHOD 04/10/2012 ANASTACIA ARCE DOA K V65.45 STD COUNSELING 04/10/2012 ARCE ANASTACIA PATTERSONA K V74.5 STD SCREEN 04/10/2012 V25.02 CONTRACEPTION - ANY METHOD 04/10/2012 V65.45 STD COUNSELING 04/10/2012 V74.5 STD SCREEN 04/10/2012 PADILLA IRVIN APRN A V25.02 CONTRACEPTION - ANY METHOD 04/10/2012 PADILLA IRVIN APRN A V65.45 STD COUNSELING 04/10/2012 PADILLA IRVIN APRN A V74.5 STD SCREEN 04/10/2012 NORM ARCE DO V25.02 CONTRACEPTION - ANY METHOD 04/10/2012 NORM ARCE DO V65.45 STD COUNSELING 04/10/2012 NORM ARCE DO V74.5 STD SCREEN 04/10/2012 ANASTACIA ARCE DOA K V25.02 CONTRACEPTION - ANY METHOD 04/10/2012 ANASTACIA ARCE DOA K V65.45 STD COUNSELING 04/10/2012 NORM ARCE DO K V74.5 STD SCREEN 04/10/2012 JAYCEE CORTÉS APRN R V25.02 CONTRACEPTION - ANY METHOD 04/10/2012 JAYCEE CORTÉS APRN R V65.45 STD COUNSELING 04/10/2012 JAYCEE CORTÉS APRN R V74.5 STD SCREEN 08/23/2012 V70.0 EXAM - ROUTINE H&P 08/23/2012 V70.0 EXAM - ROUTINE H&P 08/23/2012 ANASTACIA ARCE DOA K V70.0 EXAM - ROUTINE H&P 08/23/2012 CHERIE IRVIN APRNIDI A V70.0 EXAM - ROUTINE H&P 08/23/2012 NORM ARCE DO K V70.0 EXAM - ROUTINE H&P 08/23/2012 ANASTACIA ARCE DOA K V70.0 EXAM - ROUTINE H&P 08/23/2012 JAYCEE CORTÉS APRN R V70.0 EXAM - ROUTINE H&P 11/12/2012 V25.9 CONTRACEPTION MANAGEMENT 11/12/2012 NORM ARCE DO V25.9 CONTRACEPTION MANAGEMENT 11/12/2012 PADILLA IRVIN APRN A V25.9 CONTRACEPTION MANAGEMENT 11/12/2012 ARCE DO, NORM K V25.9 CONTRACEPTION MANAGEMENT 11/12/2012 ARCE DO, NORM K V25.9 CONTRACEPTION MANAGEMENT 11/12/2012 JAYCEE CORTÉS APRN V25.9 CONTRACEPTION MANAGEMENT 2013 ARCE DOANASTACIAA K V25.49 CONTRACEPTION SURVEILLANCE (REPEAT RX) 2013 PADILLA IRVIN APRN V25.49 CONTRACEPTION SURVEILLANCE (REPEAT RX) 2013 ARCE DONORM K V25.49 CONTRACEPTION SURVEILLANCE (REPEAT RX) 2013 ARCE DOANASTACIAA K V25.49 CONTRACEPTION SURVEILLANCE (REPEAT RX) 2013 JAYCEE CORTÉS APRN V25.49 CONTRACEPTION SURVEILLANCE (REPEAT RX) 06/20/2014 SOURAV SEGURA DO Ot 599.0 URIN TRACT INFECTION NOS 06/20/2014 SOURAV SEGURA DO Ot 789.09 ABDOMINAL PAIN, OTHER SPECIFIED SITE 07/20/2014 JAYCEE CORTÉS APRN 462 ACUTE PHARYNGITIS 03/05/2015 ANDIE ORELLANA APRN Ot 784.0 HEADACHE 09/21/2016 ELICEO WHATLEY DO Ot Z36 ENCOUNTER FOR SCREENING OF MOT 09/21/2016 ELICEO WHATLEY DO Ot Z3A.00 WEEKS OF GESTATION OF NOT SPEC 09/26/2016 ELICEO WHATLEY DO Ot Z36 ENCOUNTER FOR SCREENING OF MOT 09/26/2016 ELICEO WHATLEY DO Ot Z3A.00 WEEKS OF GESTATION OF NOT SPEC 10/04/2016 ELICEO WHATLEY DO Ot Z36 ENCOUNTER FOR SCREENING OF MOT 10/04/2016 VIVEKECH ELICEO PATTERSON Ot Z3A.00 WEEKS OF GESTATION OF NOT SPEC 10/04/2016 ELICEO WHATLEY DO Ot Z36 ENCOUNTER FOR SCREENING OF MOT 10/04/2016 ELICEO WHATLEY DO Ot Z3A.00 WEEKS OF GESTATION OF NOT SPEC 10/13/2016 ELICEO WHATLEY DO Ot Z36 ENCOUNTER FOR SCREENING OF MOT 10/13/2016 ELICEO WHATLEY DO Ot Z3A.00 WEEKS OF GESTATION OF NOT SPEC 11/15/2016 ELICEO WHATLEY DO Ot O26.93 RELATED CONDITIONS, UNSPECIFIE 11/15/2016 ELICEO WHATLEY DO Ot R10.2 PELVIC AND PERINEAL PAIN 11/15/2016 ELICEO WHATLEY DO Ot Z3A.35 35 WEEKS GESTATION OF 11/22/2016 ELICEO WHATLEY DO Ot O26.93 RELATED CONDITIONS, UNSPECIFIE 11/22/2016 ELICEO WHATLEY DO Ot R10.2 PELVIC AND PERINEAL PAIN 11/22/2016 ELICEO WHATLEY DO Ot Z3A.35 35 WEEKS GESTATION OF 12/11/2016 ELICEO WHATLEY DO Ot O69.81X0 LABOR AND DEL COMP BY CORD AROUND NECK, 12/11/2016 ELICEO WHATLEY DO Ot O76 ABNLT IN HEART RATE AND RHYTHM COM 12/11/2016 ELICEO WHATLEY DO Ot Z37.0 SINGLE LIVE 12/11/2016 ELICEO WHATLEY DO Ot Z3A.38 38 WEEKS GESTATION OF 04/27/2017 ELICEO WHATLEY DO Ot Z36 ENCOUNTER FOR SCREENING OF MOT 04/27/2017 ELICEO WHATLEY DO, Ot Z3A.00 WEEKS OF GESTATION OF NOT SPEC 04/27/2017 IMELDA SOURAV PATTERSON Ot F11.10 OPIOID ABUSE, UNCOMPLICATED 04/27/2017 SOURAV SEGURA DO K Ot F17.210 NICOTINE DEPENDENCE, CIGARETTES, UNCOMPL 04/27/2017 IMELDASOURAV Abdalla DO K Ot K02.9 DENTAL CARIES, UNSPECIFIED 04/27/2017 SOURAV SEGURA DO Ot K03.81 CRACKED TOOTH 04/27/2017 SOURAV SEGURA DO K Ot K08.89 OTHER SPECIFIED DISORDERS OF TEETH AND S 04/27/2017 IMELDA SOURAV PATTERSON Ot Z87.59 PERSONAL HISTORY OF COMP OF PREG, CHLDBR 05/03/2017 SOURAV SEGURA DO Ot F11.10 OPIOID ABUSE, UNCOMPLICATED 05/03/2017 IMELDA SOURAV PATTERSON K Ot F17.210 NICOTINE DEPENDENCE, CIGARETTES, UNCOMPL 05/03/2017 IMELDA SOURAV PATTERSON K Ot K02.9 DENTAL CARIES, UNSPECIFIED 05/03/2017 SOURAV SEGURA DO K Ot K03.81 CRACKED TOOTH 05/03/2017 IMELDA SOURAV PATTERSON K Ot K08.89 OTHER SPECIFIED DISORDERS OF TEETH AND S 05/03/2017 SOURAV SEGURA DO Ot Z87.59 PERSONAL HISTORY OF COMP OF PREG, CHLDBR 12/31/2017 URSULA DICKERSON, MARLON Schmidt Ot R10.11 RIGHT UPPER QUADRANT PAIN 12/31/2017 MARLON VERGARA MD Ot R11.2 NAUSEA WITH VOMITING, UNSPECIFIED 12/31/2017 URSULA DICKERSON, MARLON Schmidt Ot Z87.59 PERSONAL HISTORY OF COMP OF PREG, CHLDBR 01/03/2018 SARAH MORENO DO Ot K80.20 CALCULUS OF GALLBLADDER W/O CHOLECYSTITI 01/10/2018 KATHARINA DICKERSON, AGUILA Guerrero Ot Z01.818 ENCOUNTER FOR OTHER PREPROCEDURAL EXAMIN 01/11/2018 AGUILA POSADAS MD Ot F17.210 NICOTINE DEPENDENCE, CIGARETTES, UNCOMPL 01/11/2018 AGUILA POSADAS MD Ot K80.10 CALCULUS OF GALLBLADDER W CHRONIC CHOLEC 01/11/2018 AGUILA POSADAS MD Ot Z01.818 ENCOUNTER FOR OTHER PREPROCEDURAL EXAMIN 01/15/2018 SARAH MORENO DO Ot K80.20 CALCULUS OF GALLBLADDER W/O CHOLECYSTITI 01/15/2018 KATHARINA DICKERSON, AGUILA Guerrero Ot F17.210 NICOTINE DEPENDENCE, CIGARETTES, UNCOMPL 01/15/2018 KATHARINA DICKERSON, AGUILA Guerrero Ot K80.10 CALCULUS OF GALLBLADDER W CHRONIC CHOLEC 01/20/2018 URSULA DICKERSON, MARLON Schmidt Ot R10.11 RIGHT UPPER QUADRANT PAIN 01/20/2018 URSULA DICKERSON, MARLON Schmidt Ot R11.2 NAUSEA WITH VOMITING, UNSPECIFIED 01/20/2018 URSULA DICKERSON, MARLON Schmidt Ot Z87.59 PERSONAL HISTORY OF COMP OF PREG, CHLDBR 04/02/2018 DANDY CHAUDHARI Ot K02.7 DENTAL ROOT CARIES 04/02/2018 DANDY CHAUDHARI Ot K04.7 PERIAPICAL ABSCESS WITHOUT SINUS 04/02/2018 DANDY CHAUDHARI Ot O26.899 OTH RELATED CONDITIONS, UNSPEC 04/02/2018 DANDY CHAUDHARI Ot O99.89 OTH DISEASES AND CONDITIONS COMPL PREG/C 04/02/2018 DANDY CHAUDHARI Ot Z3A.00 WEEKS OF GESTATION OF NOT SPEC 04/02/2018 DANDY CHAUDHARI Ot Z98.890 OTHER SPECIFIED POSTPROCEDURAL STATES 04/04/2018 WATSON DANDY Ot K02.7 DENTAL ROOT CARIES 04/04/2018 WATSON DANDY Ot K04.7 PERIAPICAL ABSCESS WITHOUT SINUS 04/04/2018 DANDY CHAUDHARI Ot O26.899 OTH RELATED CONDITIONS, UNSPEC 04/04/2018 AUGIEGEMMA DANDY Ot O99.89 OTH DISEASES AND CONDITIONS COMPL PREG/C 04/04/2018 WATSON DANDY Ot Z3A.00 WEEKS OF GESTATION OF NOT SPEC 04/04/2018 DANDY CHAUDHARI Ot Z98.890 OTHER SPECIFIED POSTPROCEDURAL STATES 07/03/2018 ELICEO WHATLEY DO Ot Z36 ENCOUNTER FOR SCREENING OF MOT 07/03/2018 ELICEO WHATLEY DO Ot Z3A.00 WEEKS OF GESTATION OF NOT SPEC 07/03/2018 SARAH MORENO DO Ot K80.20 CALCULUS OF GALLBLADDER W/O CHOLECYSTITI 07/05/2018 ELICEO WHATLEY DO Ot Z36.89 ENCOUNTER FOR OTHER SPECIFIED 07/05/2018 ELICEO WHATLEY DO Ot Z3A.20 20 WEEKS GESTATION OF 07/25/2018 ELICEO WHATLEY DO Ot Z36.89 ENCOUNTER FOR OTHER SPECIFIED 07/25/2018 ELICEO WHATLEY DO Ot Z3A.20 20 WEEKS GESTATION OF Procedures Code Description [place] [address] URINE TEST (IN- HOUSE) 08/23/2012 35820 THERAPUTIC INJ SQ/IM 08/23/2012 J1055 DEPO-PROVERA INJ 150 MG 08/23/2012 55068 URINE TEST (IN- HOUSE) 11/12/2012 07439 THERAPUTIC INJ SQ/IM 11/12/2012 J1050 DEPO PROVERA 11/12/2012 54408 URINE TEST (IN- HOUSE) 04/29/2013 J1050 DEPO PROVERA 04/29/2013 14210 THERAPUTIC INJ SQ/IM 04/29/2013 18348 THERAPUTIC INJ SQ/IM 07/16/2013 J1050 DEPO PROVERA 07/16/2013 26030 TEST, URINE (IN- HOUSE) 07/16/2013 16626 THERAPUTIC INJ SQ/IM 09/30/2013 J1050 DEPO PROVERA 09/30/2013 73140 TEST, URINE (IN- HOUSE) 09/30/2013 77369 THERAPUTIC INJ SQ/IM 12/17/2013 J1050 DEPO PROVERA 12/17/2013 31970 TEST, URINE (IN- HOUSE) 12/17/2013 76908 STREP A (IN-HOUSE) 07/20/2014 [id number] EXTRACTION OF POC, LOW CERVICAL, OPEN AP 12/09/2016 Results Test Result Range Complete blood count (CBC) with automated white blood cell (WBC) differential - 12/09/16 10:15 Blood leukocytes automated count (number/volume) 11.1 10*3/uL 4.3-11.0 Blood erythrocytes automated count (number/volume) 4.20 10*6/uL 4.35-5.85 Venous blood hemoglobin measurement (mass/volume) 12.2 g/dL 11.5-16.0 Blood hematocrit (volume fraction) 37 % 35-52 Automated erythrocyte mean corpuscular volume 88 [foz_us] 80-99 Automated erythrocyte mean corpuscular hemoglobin (mass per erythrocyte) 29 pg 25-34 Automated erythrocyte mean corpuscular hemoglobin concentration measurement ( mass/volume) 33 g/dL 32-36 Automated erythrocyte distribution width ratio 13.8 % 10.0-14.5 Automated blood platelet count (count/volume) 185 10*3/uL 130-400 Automated blood platelet mean volume measurement 11.6 [foz_us] 7.4-10.4 Automated blood neutrophils/100 leukocytes 73 % 42-75 Automated blood lymphocytes/100 leukocytes 19 % 12-44 Blood monocytes/100 leukocytes 7 % 0-12 Automated blood eosinophils/100 leukocytes 1 % 0-10 Automated blood basophils/100 leukocytes 0 % 0-10 Blood neutrophils automated count (number/volume) 8.1 10*3 1.8-7.8 Blood lymphocytes automated count (number/volume) 2.1 10*3 1.0-4.0 Blood monocytes automated count (number/volume) 0.7 10*3 0.0-1.0 Automated eosinophil count 0.1 10*3/uL 0.0-0.3 Automated blood basophil count (count/volume) 0.0 10*3/uL 0.0-0.1 Blood type T Indirect antibody screen panel - 12/09/16 10:15 ABO+Rh group OP NRG Transfusion band number [id number] NRG Blood group antibody screen NEGATIVE NRG Complete urinalysis with reflex to culture - 12/09/16 12:15 Urine color determination RED NRG Urine clarity determination MUCOUS NRG Urine pH measurement by test strip 7 5-9 Specific gravity of urine by test strip 1.015 1.016- 1.022 Urine protein assay by test strip, semi-quantitative 4+ NEGATIVE Urine glucose detection by automated test strip NEGATIVE NEGATIVE Erythrocytes detection in urine sediment by light microscopy 5+ NEGATIVE Urine ketones detection by automated test strip NEGATIVE NEGATIVE Urine nitrite detection by test strip NEGATIVE NEGATIVE Urine total bilirubin detection by test strip NEGATIVE NEGATIVE Urine urobilinogen measurement by automated test strip (mass/volume) NORMAL NORMAL Urine leukocyte esterase detection by dipstick 3+ NEGATIVE Automated urine sediment erythrocyte count by microscopy (number/high power field) [HPF] NRG Automated urine sediment leukocyte count by microscopy (number/high power field ) [HPF] NRG Bacteria detection in urine sediment by light microscopy NEGATIVE NRG Squamous epithelial cells detection in urine sediment by light microscopy >50 NRG Crystals detection in urine sediment by light microscopy NONE NRG Casts detection in urine sediment by light microscopy NONE NRG Mucus detection in urine sediment by light microscopy LARGE NRG Complete urinalysis with reflex to culture YES NRG Bacterial urine culture - 12/09/16 12:15 Bacterial urine culture [id number] NRG COLONY COUNT 10,000/ML - 100,000/ML NRG Complete blood count (CBC) with automated white blood cell (WBC) differential - 12/10/16 04:40 Blood leukocytes automated count (number/volume) 24.7 10*3/uL 4.3-11.0 Blood erythrocytes automated count (number/volume) 3.54 10*6/uL 4.35-5.85 Venous blood hemoglobin measurement (mass/volume) 10.3 g/dL 11.5-16.0 Blood hematocrit (volume fraction) 31 % 35-52 Automated erythrocyte mean corpuscular volume 89 [foz_us] 80-99 Automated erythrocyte mean corpuscular hemoglobin (mass per erythrocyte) 29 pg 25-34 Automated erythrocyte mean corpuscular hemoglobin concentration measurement ( mass/volume) 33 g/dL 32-36 Automated erythrocyte distribution width ratio 14.0 % 10.0-14.5 Automated blood platelet count (count/volume) 153 10*3/uL 130-400 Automated blood platelet mean volume measurement 12.0 [foz_us] 7.4-10.4 Automated blood neutrophils/100 leukocytes 88 % 42-75 Automated blood lymphocytes/100 leukocytes 7 % 12-44 Blood monocytes/100 leukocytes 5 % 0-12 Automated blood eosinophils/100 leukocytes 0 % 0-10 Automated blood basophils/100 leukocytes 0 % 0-10 Blood neutrophils automated count (number/volume) 21.8 10*3 1.8-7.8 Blood lymphocytes automated count (number/volume) 1.8 10*3 1.0-4.0 Blood monocytes automated count (number/volume) 1.1 10*3 0.0-1.0 Automated eosinophil count 0.0 10*3/uL 0.0-0.3 Automated blood basophil count (count/volume) 0.0 10*3/uL 0.0-0.1 Complete blood count (CBC) with automated white blood cell (WBC) differential - 12/10/16 15:34 Blood leukocytes automated count (number/volume) 24.1 10*3/uL 4.3-11.0 Blood erythrocytes automated count (number/volume) 3.53 10*6/uL 4.35-5.85 Venous blood hemoglobin measurement (mass/volume) 10.3 g/dL 11.5-16.0 Blood hematocrit (volume fraction) 31 % 35-52 Automated erythrocyte mean corpuscular volume 89 [foz_us] 80-99 Automated erythrocyte mean corpuscular hemoglobin (mass per erythrocyte) 29 pg 25-34 Automated erythrocyte mean corpuscular hemoglobin concentration measurement ( mass/volume) 33 g/dL 32-36 Automated erythrocyte distribution width ratio 14.2 % 10.0-14.5 Automated blood platelet count (count/volume) 166 10*3/uL 130-400 Automated blood platelet mean volume measurement 11.7 [foz_us] 7.4-10.4 Automated blood neutrophils/100 leukocytes 81 % 42-75 Automated blood lymphocytes/100 leukocytes 15 % 12-44 Blood monocytes/100 leukocytes 4 % 0-12 Automated blood eosinophils/100 leukocytes 0 % 0-10 Automated blood basophils/100 leukocytes 0 % 0-10 Blood neutrophils automated count (number/volume) 19.4 10*3 1.8-7.8 Blood lymphocytes automated count (number/volume) 3.7 10*3 1.0-4.0 Blood monocytes automated count (number/volume) 1.0 10*3 0.0-1.0 Automated eosinophil count 0.0 10*3/uL 0.0-0.3 Automated blood basophil count (count/volume) 0.0 10*3/uL 0.0-0.1 Complete blood count (CBC) with automated white blood cell (WBC) differential - 12/11/16 06:22 Blood leukocytes automated count (number/volume) 18.1 10*3/uL 4.3-11.0 Blood erythrocytes automated count (number/volume) 3.53 10*6/uL 4.35-5.85 Venous blood hemoglobin measurement (mass/volume) 10.3 g/dL 11.5-16.0 Blood hematocrit (volume fraction) 32 % 35-52 Automated erythrocyte mean corpuscular volume 90 [foz_us] 80-99 Automated erythrocyte mean corpuscular hemoglobin (mass per erythrocyte) 29 pg 25-34 Automated erythrocyte mean corpuscular hemoglobin concentration measurement ( mass/volume) 32 g/dL 32-36 Automated erythrocyte distribution width ratio 14.6 % 10.0-14.5 Automated blood platelet count (count/volume) 170 10*3/uL 130-400 Automated blood platelet mean volume measurement 11.5 [foz_us] 7.4-10.4 Automated blood neutrophils/100 leukocytes 70 % 42-75 Automated blood lymphocytes/100 leukocytes 25 % 12-44 Blood monocytes/100 leukocytes 4 % 0-12 Automated blood eosinophils/100 leukocytes 1 % 0-10 Automated blood basophils/100 leukocytes 0 % 0-10 Blood neutrophils automated count (number/volume) 12.7 10*3 1.8-7.8 Blood lymphocytes automated count (number/volume) 4.5 10*3 1.0-4.0 Blood monocytes automated count (number/volume) 0.8 10*3 0.0-1.0 Automated eosinophil count 0.1 10*3/uL 0.0-0.3 Automated blood basophil count (count/volume) 0.0 10*3/uL 0.0-0.1 Complete blood count (CBC) with automated white blood cell (WBC) differential - 12/31/17 00:25 Blood leukocytes automated count (number/volume) 11.6 10*3/uL 4.3-11.0 Blood erythrocytes automated count (number/volume) 4.44 10*6/uL 4.35-5.85 Venous blood hemoglobin measurement (mass/volume) 13.5 g/dL 11.5-16.0 Blood hematocrit (volume fraction) 39 % 35-52 Automated erythrocyte mean corpuscular volume 87 [foz_us] 80-99 Automated erythrocyte mean corpuscular hemoglobin (mass per erythrocyte) 30 pg 25-34 Automated erythrocyte mean corpuscular hemoglobin concentration measurement ( mass/volume) 35 g/dL 32-36 Automated erythrocyte distribution width ratio 14.0 % 10.0-14.5 Automated blood platelet count (count/volume) 230 10*3/uL 130-400 Automated blood platelet mean volume measurement 11.2 [foz_us] 7.4-10.4 Automated blood neutrophils/100 leukocytes 48 % 42-75 Automated blood lymphocytes/100 leukocytes 45 % 12-44 Blood monocytes/100 leukocytes 5 % 0-12 Automated blood eosinophils/100 leukocytes 2 % 0-10 Automated blood basophils/100 leukocytes 0 % 0-10 Blood neutrophils automated count (number/volume) 5.5 10*3 1.8-7.8 Blood lymphocytes automated count (number/volume) 5.2 10*3 1.0-4.0 Blood monocytes automated count (number/volume) 0.5 10*3 0.0-1.0 Automated eosinophil count 0.2 10*3/uL 0.0-0.3 Automated blood basophil count (count/volume) 0.0 10*3/uL 0.0-0.1 Comprehensive metabolic panel - 12/31/17 00:25 Serum or plasma sodium measurement (moles/volume) 140 mmol/L 135-145 Serum or plasma potassium measurement (moles/volume) 3.4 mmol/L 3.6-5.0 Serum or plasma chloride measurement (moles/volume) 108 mmol/L 98-107 Carbon dioxide 20 mmol/L 21-32 Serum or plasma anion gap determination (moles/volume) 12 mmol/L 5-14 Serum or plasma urea nitrogen measurement (mass/volume) 6 mg/dL 7-18 Serum or plasma creatinine measurement (mass/volume) 0.69 mg/dL 0.60-1.30 Serum or plasma urea nitrogen/creatinine mass ratio 9 NRG Serum or plasma creatinine measurement with calculation of estimated glomerular filtration rate > NRG Serum or plasma glucose measurement (mass/volume) 104 mg/dL 70-105 Serum or plasma calcium measurement (mass/volume) 9.2 mg/dL 8.5-10.1 Serum or plasma total bilirubin measurement (mass/volume) 0.7 mg/dL 0.1-1.0 Serum or plasma alkaline phosphatase measurement (enzymatic activity/volume) 85 U/L 40-136 Serum or plasma aspartate aminotransferase measurement (enzymatic activity/ volume) 13 U/L 5-34 Serum or plasma alanine aminotransferase measurement (enzymatic activity/volume ) 9 U/L 0-55 Serum or plasma protein measurement (mass/volume) 7.1 g/dL 6.4-8.2 Serum or plasma albumin measurement (mass/volume) 4.3 g/dL 3.2-4.5 Lipase - 12/31/17 00:25 Lipase 26 U/L 8-78 Complete urinalysis with reflex to culture - 12/31/17 00:34 Urine color determination YELLOW NRG Urine clarity determination CLEAR NRG Urine pH measurement by test strip 6 5-9 Specific gravity of urine by test strip 1.010 1.016- 1.022 Urine protein assay by test strip, semi-quantitative NEGATIVE NEGATIVE Urine glucose detection by automated test strip NEGATIVE NEGATIVE Erythrocytes detection in urine sediment by light microscopy NEGATIVE NEGATIVE Urine ketones detection by automated test strip NEGATIVE NEGATIVE Urine nitrite detection by test strip NEGATIVE NEGATIVE Urine total bilirubin detection by test strip NEGATIVE NEGATIVE Urine urobilinogen measurement by automated test strip (mass/volume) NORMAL NORMAL Urine leukocyte esterase detection by dipstick NEGATIVE NEGATIVE Automated urine sediment erythrocyte count by microscopy (number/high power field) NONE NRG Automated urine sediment leukocyte count by microscopy (number/high power field ) NONE NRG Bacteria detection in urine sediment by light microscopy TRACE NRG Squamous epithelial cells detection in urine sediment by light microscopy 0-2 NRG Crystals detection in urine sediment by light microscopy NONE NRG Casts detection in urine sediment by light microscopy NONE NRG Mucus detection in urine sediment by light microscopy NEGATIVE NRG Complete urinalysis with reflex to culture NO NRG Urine beta human chorionic gonadotropin (hCG) measurement - 01/11/18 09:15 Urine beta human chorionic gonadotropin (hCG) measurement NEGATIVE NEGATIVE Urine drug screening test - 01/11/18 09:15 Urine phencyclidine detection by screening method NEGATIVE NEGATIVE Urine benzodiazepines detection by screening method NEGATIVE NEGATIVE Urine cocaine detection NEGATIVE NEGATIVE Urine amphetamines detection by screening method NEGATIVE NEGATIVE Urine methamphetamine detection by screening method NEGATIVE NEGATIVE Urine cannabinoids detection by screening method POSITIVE NEGATIVE Urine opiates detection by screening method NEGATIVE NEGATIVE Urine barbiturates detection NEGATIVE NEGATIVE Screening urine tricyclic antidepressants detection NEGATIVE NEGATIVE Urine methadone detection by screening method NEGATIVE NEGATIVE Urine oxycodone detection NEGATIVE NEGATIVE Urine propoxyphene detection NEGATIVE NEGATIVE Methicillin resistant Staphylococcus aureus (MRSA) screening culture - 09:15 Methicillin resistant Staphylococcus aureus (MRSA) screening culture NEG NRG Encounters ACCT No. Visit Date/Time Discharge Status Pt. Type Provider Facility Loc./Unit Complaint [id number] 07/20/2014 14:09:00 07/20/2014 23:59:59 CLS Outpatient JAYCEE CORTÉS APRN [id number] 12/17/2013 13:43:00 12/17/2013 23:59:59 CLS Outpatient NORM ARCE DO [id number] 09/30/2013 08:09:00 09/30/2013 23:59:59 CLS Outpatient NORM ARCE DO [id number] 07/16/2013 15:13:00 07/16/2013 23:59:59 CLS Outpatient CHERIE IRVIN APRNKATYA Melton [id number] 04/29/2013 09:57:00 04/29/2013 23:59:59 CLS Outpatient NORM ARCE DO [id number] 08/23/2012 15:48:00 08/23/2012 23:59:59 CLS Outpatient [id number] 04/10/2012 10:03:00 04/10/2012 23:59:59 CLS Outpatient [id number] 11/12/2012 16:41:00 Document Registration [id number] 07/04/2018 11:03:00 07/04/2018 23:59:59 CLS Outpatient FENELICEO SANTORO DO S [facility] RAD [id number] 04/02/2018 12:19:00 04/02/2018 13:02:00 DIS Emergency DANDY CHAUDHARI [facility] ER TOOTH PAIN [id number] 01/11/2018 09:00:00 01/11/2018 14:10:00 DIS Outpatient AGUILA POSADAS MD [facility] SDC GALLSTONES [id number] 01/10/2018 10:18:00 01/10/2018 10:49:00 DIS Outpatient KATHARINA DICKERSON, AGUILA Guerrero [facility] PREOP GALLSTONES [id number] 01/02/2018 08:13:00 01/02/2018 23:59:59 CLS Outpatient GELLENDER SARAH PATTERSON [facility] RAD ABD PAIN,RUQ PAIN [id number] 12/30/2017 23:59:00 12/31/2017 02:05:00 DIS Emergency MARLON VERGARA MD [facility] ER CANT KEEP ANYTHING DOWN AB PAIN [id number] 04/27/2017 17:49:00 04/27/2017 18:47:00 DIS Emergency SOURAV SEGURA DO [facility] ER DENTAL PAIN/BROKEN TOOTH [id number] 12/09/2016 10:07:00 12/11/2016 10:43:00 DIS Inpatient ELICEO WHATLEY DO [facility] LDRP LABOR [id number] 11/15/2016 06:21:00 11/15/2016 07:30:00 DIS Outpatient ELICEO WHATLEY DO [facility] [facility] WSo ABD PAIN-36 WKS [id number] 09/20/2016 12:37:00 09/20/2016 23:59:59 CLS Outpatient ELICEO WHATLEY DO [facility] RAD [id number] 03/05/2015 11:57:00 03/05/2015 14:29:00 DIS Emergency ANDIE ORELLANA DIE CUTTER OPERATOR [facility]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
[2018-11-12] MEDS ORDERED: LIDOCAINE/EPI 2% 1:200,00 (XYLOCAINE) 10 ML VIAL ONE (04:17)
[2018-11-12] MEDS ORDERED: OXYTOCIN/NORMAL SALINE 500 ML IV ONE (04:28)
[2018-11-12] MEDS: OXYTOCIN/NORMAL SALINE 500 ML IV SCH ×2 (04:44→05:24)
--- NOTE | 2018-11-12 05:02 | History & Physical-OB ---
OB - Chief Complaint & HPI Date/Time Date of Admission: Date of Admission: November 12, 2018 at 00:40 Date seen by a Provider: November 12, 2018 Time Seen by a Provider: 02:00 Chief Complaint/History OB-Reason for Admission/Chief: Onset of Labor Expected Date of Delivery: November 19, 2018 Gestational Age in Weeks: 39 Admission Nurse Assessment Rev: Yes Allergies and Home Medications Allergies Coded Allergies: No Known Drug Allergies (Unverified , 06/20/14) Home Medications Amoxicillin 500 Mg Capsule, 500 MG PO TID Prescribed by: DANDY CHAUDHARI on 04/02/18 1256 Hydrocodone Bit/Acetaminophen 1 Tab Tab, 1-2 TAB PO 4-6HR PRN for PAIN Prescribed by: AGUILA POSADAS on 01/11/18 1130 Ondansetron 4 Mg Tab.rapdis, 4 MG SL Q4H PRN for NAUSEA/VOMITING-1ST LINE Prescribed by: MARLON HOWARD on 12/31/17 0200 Patient Home Medication List Home Medication List Reviewed: Yes OB - History Hx of Present Care: Yes Ultrasounds: Normal mid trimester US Obstetrical Complications: None Medical Complications: None Delivery History Hx Blood Disorders: No Adverse Rxn to Tranfusion: No Patient Past Medical History none Social History/Family History Alcohol Use: Denies Use Recreational Drug Use: No 2nd Hand Smoke Exposure: Yes OB - Admission Exam Physical Exam Vitals: Vital Signs 11/12/18 03:45 Temp 97.0 Pulse 89 Resp 18 B/P (MAP) 114/73 (87) Pulse Ox 100 O2 Delivery Room Air HEENT: NCAT Heart: Rhythm Normal Lungs: Clear Abdomen: Gravid Extremities: Normal Reflexes: Normal Cervical Dilatation: 5cm Effacement: 75% Station: -1 Membranes: Intact Heart Rate: 130's Accelerations: Accelerations Present Decelerations: No Decelerations Short Term Variability: Present Inspector Metal Can Variability: Average (6-25) Contractions on Admission: < 5 Minutes Apart Labs Laboratory Tests Test 11/12/18 00:50 Range/Units White Blood Count 19.7 H 4.3-11.0 10^3/uL Red Blood Count 3.51 L 4.35-5.85 10^6/uL Hemoglobin 10.4 L 11.5-16.0 G/DL Hematocrit 31 L 35-52 % Mean Corpuscular Volume 88 80-99 FL Mean Corpuscular Hemoglobin 30 25-34 PG Mean Corpuscular Hemoglobin Concent 34 32-36 G/DL Red Cell Distribution Width 14.2 10.0-14.5 % Platelet Count 261 130-400 10^3/uL Mean Platelet Volume 10.2 7.4-10.4 FL Neutrophils (%) (Auto) 79 H 42-75 % Lymphocytes (%) (Auto) 15 12-44 % Monocytes (%) (Auto) 6 0-12 % Eosinophils (%) (Auto) 0 0-10 % Basophils (%) (Auto) 0 0-10 % Neutrophils # (Auto) 15.5 H 1.8-7.8 X 10^3 Lymphocytes # (Auto) 3.0 1.0-4.0 X 10^3 Monocytes # (Auto) 1.1 H 0.0-1.0 X 10^3 Eosinophils # (Auto) 0.1 0.0-0.3 10^3/uL Basophils # (Auto) 0.0 0.0-0.1 10^3/uL OB - Assessment/Plan/Diagnosis Assessment Assessment: active labor Admission Dx 23 yo @ 39 weeks Active labor TOLAC GBS neg Admission Status: Inpatient Order (span 2 midnights) Reason for Inpatient Admission: Active labor at term Plan Plan: Expectant Management ELICEO WHATLEY DO November 12, 2018 05:02
--- NOTE | 2018-11-12 05:09 | Discharge Inst-Women's Service ---
Discharge Inst-Women's Serv Depart Medication/Instructions New, Converted or Re-Newed RX: RX on Chart Final Diagnosis PPD 1 NVD Consults/Follow Up Additional Follow Up: Yes Orders/Referrals Dr. Whatley in 6 weeks Activity Activity: Activity as Tolerated Driving Instructions: No Driving for 1 Week NO SMOKING: NO SMOKING Nothing Inside Vagina: No Douching, No Burnett, No Tampons Diet Discharge Diet: No Restrictions Symptoms to Report to : Bleeding Excessive, Pain Increased, Fever Over 101 Degrees F, Vaginal Bleeding Increase, Questions/Concerns For Any Problems or Questions: Contact Your Physician ELICEO WHATLEY DO November 12, 2018 05:09
--- NOTE | 2018-11-12 05:09 | OB Labor & Delivery Record ---
L&D History Date of Service Date of Service: November 12, 2018 History Expected Date of Delivery: November 19, 2018 Gestational Age in Weeks: 39 Hx : 2 Hx Para: 1 Complications Events: Routine care Operative Indications (Cesarea: N/A-Vaginal Delivery Intrapartal Events: None L&D Stage1 Stage One Onset of Labor - Date: November 12, 2018 Monitors and Tracing Monitor Mode: External Heart Rate: 135 Station: 0 Manager Marketing Variability: Average (6-10) Short Term Variability: Present Presentation: Vertex Vital Signs VS - Last 72 Hours, by Label 11/12/18 11/12/18 11/12/18 11/12/18 00:40 01:00 01:15 01:30 Temp 97.1 Pulse 88 80 86 78 Resp 18 18 18 18 B/P (MAP) 126/64 (84) 120/59 (79) 119/61 (80) 123/64 (83) Pulse Ox 97 O2 Delivery Room Air Room Air Room Air Room Air 11/12/18 11/12/18 11/12/18 11/12/18 01:45 01:50 01:55 02:00 Pulse 86 91 86 82 Resp 18 18 18 18 B/P (MAP) 127/59 (81) 127/58 (81) 114/57 (76) 119/59 (79) Pulse Ox 97 97 97 97 O2 Delivery Room Air Room Air Room Air Room Air 11/12/18 11/12/18 11/12/18 11/12/18 02:05 02:10 02:15 02:20 Pulse 83 83 89 86 Resp 18 18 18 18 B/P (MAP) 113/56 (75) 114/53 (73) 111/55 (73) 111/60 (77) Pulse Ox 98 98 98 98 O2 Delivery Room Air Room Air Room Air Room Air 11/12/18 11/12/18 11/12/18 11/12/18 02:25 02:30 02:35 02:40 Pulse 89 72 98 84 Resp 18 18 18 18 B/P (MAP) 116/56 (76) 115/57 (76) 120/58 (78) 116/59 (78) Pulse Ox 98 98 98 98 O2 Delivery Room Air Room Air Room Air Room Air 11/12/18 11/12/18 11/12/18 11/12/18 02:45 02:50 02:55 03:00 Pulse 71 84 83 65 Resp 18 18 18 18 B/P (MAP) 110/53 (72) 113/63 (80) 113/56 (75) 106/59 (75) Pulse Ox 98 98 98 98 O2 Delivery Room Air Room Air Room Air Room Air 11/12/18 11/12/18 11/12/18 03:15 03:30 03:45 Temp 97.0 Pulse 75 81 89 Resp 18 18 18 B/P (MAP) 105/55 (72) 131/60 (83) 114/73 (87) Pulse Ox 99 99 100 O2 Delivery Room Air Room Air Room Air Rupture of Membranes Spontaneous Ruture of Membrane: No Amniotic Membrane Rupture Time: 0215 Amniotic Membrane Fluid Desc.: Clear Vaginal Bleeding Description: Normal Show Induction/Anesthesia Epidural Cath Placement - Time: 0152 Progress/Notes No augmentation used, Epidural received at admission as detailed in policy. She progressed to complete and +2 station without further augmentation L&D Stage2 Stage Two Stage II Date: November 12, 2018 Monitors and Tracing Monitor Mode: External Heart Rate: 135 Monitor Accelerations: Uniform Monitor Decelerations: Variable Penitentiary Variability: Average (6-10) Short Term Variability: Present Position: Right Occiput Anterior Presentation: Vertex Cord Descript/Complications Cord Vessel Description: 3 Vessels Complications nuchal cord x 1 reduced Delivery Type Delivery Method: Spontaneous Vaginal Episiotomy/Perineal Laceration Laceraction(s)/Extensions: Yes Episiotomy Description: Right Mediolateral Location Modifier: Right Degree (describe repair) RML repaired in usual fashion using 3-0 and 2-0 vicryl suture Condition of Delivery 1 minute Comment: 9 5 minute Comment: 9 Notes Live male weight pending Condition of Condition of : Living Exam: No Observed Abnormalities Resuscitation Resuscitation: N/A - Spontaneous Resp L&D Stage3 Stage Three Stage III Date: November 12, 2018 Pictocin Pitocin Administration Comment: 30 mu wide open at delivery of placenta Placenta Delivery Placenta Delivery: Spontaneous Delivery Summary Summary Estimated blood loss (mL): 300 Attending at delivery: Eliceo Whatley DO Condition of Delivery Examined: Cervix Examined, Uterus Explored Post Hemorrhage: Yes Condition of Mother stable Condition of (s) stable ELICEO WHATLEY DO November 12, 2018 05:08
[2018-11-12] MEDS ORDERED: IBUP-844 PO (05:11)
[2018-11-12] MEDS ORDERED: FERR325T18 PO (05:11)
[2018-11-12] MEDS ORDERED: DOCU100C37 PO (05:11)
[2018-11-12] MEDS ORDERED: DIBU30OI TOP (05:11)
[2018-11-12] MEDS ORDERED: Benzocaine/Menthol TP (05:11)
[2018-11-12] MEDS ORDERED: TETANUS,DIPTH,PERTUSS P/F (BOOSTRIX) 0.5 ML VIAL IM ONE (05:15)
[2018-11-12] MEDS ORDERED: DIBUCAINE (NUPERCAINAL) 1% OINT 30 GM TOP PRN (05:15)
[2018-11-12] MEDS ORDERED: BENZOCAINE/MENTHOL (DERMOPLAST) 56 ML CAN TP PRN (05:15)
[2018-11-12] MEDS ORDERED: WITCH HAZEL(TUCKS) 40 EA JAR TOP PRN (05:15)
[2018-11-12] MEDS ORDERED: MEASLES,MUMPS,RUBELLA 1 EA INJ SQ ONE (05:15)
[2018-11-12] MEDS ORDERED: CATHETER FLUSH 10 ML SYR IV SCH (06:00)
--- NOTE | 2018-11-12 06:30 | NUR ---
PERICARE COMPLETED, PAD AND PANTIES APPLIED. PT ASSISTED TO W'C AND TAKEN TO ROOM 307. PT AMBULATED TO BATHROOM. POSITIVE VOID. PT AMBULATED BACK TO BED. INFO PAPERS EXPLAINED. ORIENTATED TO ROOM. S/O AT BEDSIDE. PT DENIES ANY FURTHER NEEDS. WILL CONTINUE TO MONITOR.
[2018-11-12] MEDS: IBUPROFEN 600 MG (MOTRIN) TAB PO SCH ×6 (06:56→22:31)
--- NOTE | 2018-11-12 07:00 | NUR ---
REPORT FROM MULU RAM.
--- NOTE | 2018-11-12 09:30 | NUR ---
INITIAL ASSESSMENT COMPLETED AT BEDSIDE, VSS, NO DISTRESS NOTED.
[2018-11-12] MEDS: DOCUSATE SODIUM 100 MG (COLACE) CAP PO SCH ×2 (09:34→20:47)
[2018-11-12] MEDS: FERROUS SULF 325 MG (IRON) TAB PO SCH (09:34)
[2018-11-12] MEDS: PRENATAL VITAMIN 1 EA TAB PO SCH (09:34)
--- NOTE | 2018-11-12 13:40 | Anesthesia-Regional Post-Op ---
Regional Patient Condition Mental Status: Alert, Oriented x3 Circulation: Same as Pre-Op Headache: Absent Sensation: Full Recovery Motor Block: Absent Post Op Complications Complications None Follow Up Care/Instructions Patient Instructions None needed. Anesthesia/Patient Condition Patient is doing well, no complaints, stable vital signs, no apparent adverse anesthesia problems. No complications reported per nursing. ACACIA ZAVALA CRNA November 12, 2018 13:40
--- NOTE | 2018-11-12 13:45 | NUR ---
KAT REFUSED BY PT.
--- NOTE | 2018-11-12 15:50 | NUR ---
PT REQUEST KAT NOW, GIVEN PER ORDER. Addendum: 11/12/18 at 1640 by MATILDA COKER RN ENTERED AT WRONG TIME.
--- NOTE | 2018-11-12 16:38 | NUR ---
MOTRIN GIVEN PER PT REQUEST NOW.
--- NOTE | 2018-11-12 18:30 | NUR ---
PT IN BED, S/O AT THE BEDSIDE. PT DENIES ANY NEEDS OR QUESTIONS AT THIS TIME. DINNER TRAY REMOVED. CALL LIGHT WITHIN REACH.
[2018-11-13 00:55] VITALS: BP 85/56
[2018-11-13 04:55] VITALS: BP 100/55
[2018-11-13] MEDS: IBUPROFEN 600 MG (MOTRIN) TAB PO SCH ×2 (04:55→10:11)
[2018-11-13 06:35] LABS: BASOPHILS % (AUTO) 0 % (0-10); EOSINOPHILS # (AUTO) 0.1 10^3/uL (0.0-0.3); EOSINOPHILS % (AUTO) 1 % (0-10); HEMATOCRIT 29 % (35-52); HEMOGLOBIN 9.6 G/DL (11.5-16.0); LYMPHOCYTES # (AUTO) 4.8 X 10^3 (1.0-4.0); LYMPHOCYTES % (AUTO) 29 % (12-44); MEAN CORPUSCULAR HEMOGLOBIN 30 PG (25-34); MEAN CORPUSCULAR HGB CONC 33 G/DL (32-36); MEAN CORPUSCULAR VOLUME 92 FL (80-99); MEAN PLATELET VOLUME 10.3 FL (7.4-10.4); MONOCYTES % (AUTO) 6 % (0-12); NEUTROPHILS # (AUTO) 10.3 X 10^3 (1.8-7.8); NEUTROPHILS % (AUTO) 64 % (42-75); PLATELET COUNT 231 10^3/uL (130-400); RED CELL DISTRIBUTION WIDTH 14.4 % (10.0-14.5); WHITE BLOOD COUNT 16.2 10^3/uL (4.3-11.0)
--- NOTE | 2018-11-13 07:26 | Postpartum Progress Note ---
Note Note Day # 1 Subjective: Patient is without complaints. Ambulating, voiding. Tolerating a regular diet without nausea or vomiting. Normal lochia. Pain is well controlled with oral pain medications. Objective: Physical Exam: General - Alert and oriented, no apparent distress Abdomen - Soft, appropriately tender to palpation, non-distended, fundus firm at umbilicus Extremities - no edema, negative Africa's bilaterally Assessment: PPD 1 NVD- successful Acute blood loss anemia Plan: Routine care. Encourage breast feeding. Encourage ambulation. Ferrous sulfate supplementation. Plan for discharge today pending infant release Vitals - Labs Vital Signs - I&O Vital Signs Date Time Temp Pulse Resp B/P (MAP) Pulse Ox O2 Delivery O2 Flow Rate FiO2 11/13/18 04:55 98.9 57 18 100/55 (70) 99 Room Air 11/13/18 00:55 98.8 64 18 85/56 (66) 100 Room Air 11/12/18 20:47 99.1 91 18 107/61 (76) 100 Room Air 11/12/18 16:00 98.0 79 18 108/57 (74) 98 Room Air 11/12/18 13:00 98.6 70 18 114/57 (76) 98 Room Air 11/12/18 07:59 98.0 72 18 111/49 (69) 100 Room Air Labs Laboratory Tests 11/13/18 06:18: White Blood Count 16.2H, Red Blood Count 3.17L, Hemoglobin 9.6L, Hematocrit 29L , Mean Corpuscular Volume 92, Mean Corpuscular Hemoglobin 30, Mean Corpuscular Hemoglobin Concent 33, Red Cell Distribution Width 14.4, Platelet Count 231, Mean Platelet Volume 10.3, Neutrophils (%) (Auto) 64, Lymphocytes (%) (Auto) 29 , Monocytes (%) (Auto) 6, Eosinophils (%) (Auto) 1, Basophils (%) (Auto) 0, Neutrophils # (Auto) 10.3H, Lymphocytes # (Auto) 4.8H, Monocytes # (Auto) 1.0, Eosinophils # (Auto) 0.1, Basophils # (Auto) 0.0 ELICEO WHATLEY DO November 13, 2018 07:26
--- NOTE | 2018-11-13 07:44 | NUR ---
THIS RN TO BEDSIDE, PT RESTING. WILL RETURN AT A LATER TIME FOR ASSESSMENT.
[2018-11-13 07:55] VITALS: BP 106/57
--- NOTE | 2018-11-13 08:05 | NUR ---
DR. WHATLEY IS ON THE UNIT, MAKING ROUNDS.
[2018-11-13] MEDS: DOCUSATE SODIUM 100 MG (COLACE) CAP PO SCH (10:10)
[2018-11-13] MEDS: FERROUS SULF 325 MG (IRON) TAB PO SCH (10:10)
[2018-11-13] MEDS: PRENATAL VITAMIN 1 EA TAB PO SCH (10:10)
--- NOTE | 2018-11-13 10:12 | NUR ---
PT IN BED, HOLDING . VISITORS AT THE BEDSIDE. MEDS GIVEN PO; SEE EMAR FOR FURTHER. PT INFORMED OF PREPPING FOR DISCHARGE, PT VERBALIZES UNDERSTANDING.
--- NOTE | 2018-11-13 10:30 | NUR ---
PT REFUSING MMR AND TDAP VACCINATION AT THIS TIME.
--- NOTE | 2018-11-13 10:36 | NUR ---
PT IN BED, FAMILY AT THE BEDSIDE. DISCHARGE PAPERS PROVIDED AND REVIEWED WITH PT, PT VERBALIZES UNDERSTANDING AND DENIES ANY QUESTIONS AT THIS TIME. PAPER SIGNED. RX'S AND FOLLOW UP APPOINTMENT CARD ALSO PLACED INTO DISCHARGE FOLDER. NO CURRENT NEEDS VOICED AT THIS TIME.
--- NOTE | 2018-11-13 12:20 | NUR ---
PT DISCHARGED FROM -[facility] TO [facility] AMBULATORY IN STABLE CONDITION ACC BY S/O AND [facility] NURSING STUDENTS.
== END 2018-11-13 12:20 | disposition home or self-care (01) | DRG 806 ==
LOC: WSo 00:23 → LDRP 00:24 → WSo 00:40 → LDRP 09:40
PROVIDERS: ADMIT Obstetrics & Gynecology; ATTEND Obstetrics & Gynecology
PROC: 10E0XZZ Delivery of Products of Conception, External Approach (ICD-10-PCS; principal; 2018-11-12)
PROC: 0W8NXZZ Division of Female Perineum, External Approach (ICD-10-PCS; 2018-11-12)
DX: O34.219 Maternal care for unspecified type scar from previous cesarean delivery (principal); O90.81 Anemia of the puerperium; D62 Acute posthemorrhagic anemia; O69.81X0 Labor and delivery complicated by cord around neck, without compression, not applicable or unspecified; O99.333 Smoking (tobacco) complicating pregnancy, third trimester; F17.210 Nicotine dependence, cigarettes, uncomplicated; Z3A.39 39 weeks gestation of pregnancy; Z37.0 Single live birth
CPT/HCPCS: 36415; 85025; 86850; 86900; 86901; 99212

== ENCOUNTER → 2020-02-13 | Outpatient (CLI) | payer MEDICAID ==
[~2020-02-13] MED LIST changes: +Benzocaine/Menthol TP; +DIBU30OI TOP; +FERR325T18 PO; +IBUP-844 PO; -LIDO15SO2 MM; +LIDO20SO23 MM
--- NOTE | 2020-02-13 11:57 | Diagnostic Imaging Report ---
INDICATION: survey. TECHNIQUE: Multiple real-time grayscale images were obtained over the gravid uterus. COMPARISON: None. FINDINGS: There is a single live fetus in a cephalic presentation. heart rate was recorded at 143 bpm. Placenta is anterior. Amniotic fluid index is 11.1 cm. Cervical length is 4.1 cm. survey demonstrates bladder and stomach to be unremarkable. Kidneys are limited in evaluation due to position. brain is unremarkable. There is a four-chamber heart. There is a three-vessel cord with normal insertion. spine is unremarkable. Biometrical measurements are as follows: Biparietal 4.89 cm, age 20 weeks 6 days. Head circumference 18.04 cm, age 20 weeks 4 days. Abdominal circumference 15.37 cm, age 20 weeks 4 days. Femur length 3.29 cm, age 20 weeks 2 days. Sonographic estimate age: 20 weeks 4 days. Sonographic estimated date of delivery: 06/28/2020. Estimated Weight: 355 gm (+/- 52 gm). LMP percentile: 39%. heart rate: 143 beats per minute. number: 1 of 1. IMPRESSION: Single live IUP of 20 weeks 4 days gestational age with estimated date of confinement sonographically of 06/28/2020. survey is unremarkable although kidneys are limited in evaluation due to position. Dictated by: Dictated on workstation # [id number]
== END ==
LOC: RAD 09:45
PROVIDERS: ATTEND Nurse Practitioner Women's Health
DX: Z34.92 Encounter for supervision of normal pregnancy, unspecified, second trimester (principal); Z3A.20 20 weeks gestation of pregnancy
CPT/HCPCS: 76805

== ENCOUNTER 2020-06-24 06:30 | Inpatient (IN) | payer MEDICAID ==
[~2020-06-24] VITALS: Ht 160 cm; Wt 74.5 kg
[2020-06-24] VITALS (40 sets, daily range): BP systolic 92–136; BP diastolic 45–72
--- NOTE | 2020-06-24 06:58 | NUR ---
RAAD HARPER presented to unit via ambulation from ED, accompanied by s.o. for . RAAD HARPER weighed, gowned, voided, and to bed. EFHM and TOCO applied, VS taken. RAAD HARPER oriented to bed controls, call light, TV, heat, and A/C controls.
[2020-06-24] MEDS ORDERED: D5 LR IV SOLUTION 1,000 ML IV SCH (07:45)
[2020-06-24] MEDS ORDERED: D5 LR IV SOLUTION 1,000 ML IV ONE (07:51)
--- NOTE | 2020-06-24 08:03 | NUR ---
#20g IV to Rt.hand x2 attempts by this RN. site patent, secured in place with opsite/tape. admission labs collected prior to IVF's infusing.
[2020-06-24 08:21] LABS: BASOPHILS % (AUTO) 0 % (0-10); EOSINOPHILS # (AUTO) 0.1 10^3/uL (0.0-0.3); EOSINOPHILS % (AUTO) 1 % (0-10); HEMATOCRIT 33 % (35-52); HEMOGLOBIN 10.8 g/dL (11.5-16.0); LYMPHOCYTES # (AUTO) 2.6 10^3/uL (1.0-4.0); LYMPHOCYTES % (AUTO) 18 % (12-44); MEAN CORPUSCULAR HEMOGLOBIN 30 pg (25-34); MEAN CORPUSCULAR HGB CONC 33 g/dL (32-36); MEAN CORPUSCULAR VOLUME 90 fL (80-99); MEAN PLATELET VOLUME 10.8 fL (9.0-12.2); MONOCYTES # (AUTO) 0.7 10^3/uL (0.0-1.0); MONOCYTES % (AUTO) 5 % (0-12); NEUTROPHILS # (AUTO) 10.9 10^3/uL (1.8-7.8); NEUTROPHILS % (AUTO) 76 % (42-75); PLATELET COUNT 223 10^3/uL (130-400); WHITE BLOOD COUNT 14.4 10^3/uL (4.3-11.0)
[2020-06-24] MEDS ORDERED: fentaNYL 2 mcg/ml BUPIVA 0.125 100 ML ONE (08:45)
[2020-06-24] MEDS ORDERED: OXYTOCIN PRE-MIX DRIP 500 ML IV SCH ×2 (08:45→14:45)
[2020-06-24] MEDS ORDERED: LACTATED RINGERS 1,000 ML IV ONE ×3 (08:46→10:15)
[2020-06-24] MEDS ORDERED: OXYTOCIN PRE-MIX DRIP 500 ML IV ONE (08:46)
--- NOTE | 2020-06-24 09:05 | NUR ---
COVID 19 swab collected, labeled and sent to lab.
--- NOTE | 2020-06-24 09:18 | NUR ---
anesthesia notified for epidural placement per protocol
--- NOTE | 2020-06-24 09:30 | NUR ---
PORSHA Alvarez and URBAN Rios here for epidural placement. Procedure explained, consent reviewed and signed by anesthesia. Questions answered to patient's satisfaction. Time out taken to verify correct patient/procedure. 0944- Patient up to side of bed, assisted into sitting position. Betadine prep done x3 and sterile drape applied. 0949- Local done, see anesthesia record. 0958- Test dose given, see anesthesia record for drug and dosage. Epidural catheter secured in place. Epidural placement complete. 1005-Assisted back into bed, monitors adjusted. Epidural dosed, see anesthesia record. Epidural of Sufenta/Fentanyl @12cc/hr stated per pump. Patient tolerated procedure well.
[2020-06-24] MEDS ORDERED: fentaNYL INJECTION 100 MCG/2 ML AMP ONE (09:34)
[2020-06-24] MEDS ORDERED: LIDOCAINE PF 2% 5 ML (XYLOCAINE) VIAL ONE (09:58)
[2020-06-24] MEDS ORDERED: BUPIVACAINE 0.25% 30 ML (SENSORCAINE) VIAL ONE (09:58)
[2020-06-24] MEDS ORDERED: fentaNYL INJECTION 100 MCG/2 ML AMP INJ ONE (10:15)
[2020-06-24] MEDS ORDERED: NALOXONE 0.4 MG/ML 1 ML (NARCAN) VIAL IV PRN (10:15)
[2020-06-24] MEDS ORDERED: ONDANSETRON 4 MG/2 ML (SDV) Z0FRAN IV PRN (10:15)
[2020-06-24] MEDS ORDERED: EPIDURAL (fentaNYL 2 MCG/ML BUPIVA 0.125%)100 ML BAG EPI PRN (10:15)
[2020-06-24] MEDS ORDERED: fentaNYL 2 mcg/ml BUPIVA 0.125 100 ML EPI PRN (10:30)
[2020-06-24] MEDS ORDERED: CATHETER FLUSH 10 ML SYR IV SCH ×2 (14:00→22:00)
--- NOTE | 2020-06-24 14:37 | History & Physical-OB ---
OB - Chief Complaint & HPI Date/Time Date of Admission: Date of Admission: Jun 24, 2020 at 6:53 am Date seen by a Provider: Jun 24, 2020 Time Seen by a Provider: 07:15 Chief Complaint/History OB-Reason for Admission/Chief: Induction of Labor Hx : 3 Hx Para: 2 Expected Date of Delivery: Jun 28, 2020 Gestational Age in Weeks: 39 Gestational Age in Days: 3 Admission Nurse Assessment Rev: Yes Allergies and Home Medications Allergies Coded Allergies: No Known Drug Allergies (Unverified , 06/20/14) Home Medications Dibucaine 30 Gm Oint, 0 GM TOP UD PRN for PAIN- SEE INSTRUCTIONS Prescribed by: ELICEO WHATLEY on 11/12/18510 Docusate Sodium 100 Mg Capsule, 100 MG PO BID PRN for CONSTIPATION-1ST LINE Prescribed by: ELICEO WHATLEY on 11/12/18510 Ferrous Sulfate 325 Mg Tablet, 325 MG PO DAILY Prescribed by: ELICEO WHATLEY on 11/12/18510 Ibuprofen 600 Mg Tablet, 600 MG PO Q6HR Prescribed by: ELICEO WHATLEY on 11/12/18510 [Benzocaine/Menthol] 56 ML AEROSOL, 56 ML TP UD PRN for PAIN- SEE INSTRUCTIONS EXTERNAL USE ONLY Prescribed by: ELICEO WHATLEY on 11/12/18510 Patient Home Medication List Home Medication List Reviewed: Yes OB - History Hx of Present Care: Yes Ultrasounds: Normal mid trimester US Obstetrical Complications: None Medical Complications: None Delivery History Hx Blood Disorders: No Adverse Rxn to Tranfusion: No Patient Past Medical History none Social History/Family History 2nd Hand Smoke Exposure: Yes OB - Admission Exam Physical Exam Vitals: Vital Signs 06/24/20 06/24/20 07:22 12:00 Temp 36.4 Pulse 59 Resp 18 B/P (MAP) 102/58 (73) Pulse Ox 97 O2 Delivery Room Air HEENT: NCAT Heart: Rhythm Normal Lungs: Clear Abdomen: Gravid Extremities: Normal Reflexes: Normal Cervical Dilatation: 2cm Effacement: 75% Station: -2 Membranes: Intact Heart Rate: 130's Accelerations: Accelerations Present Decelerations: No Decelerations Sandwich Peddler Variability: Average (6-25) Contractions on Admission: 6-10 Minutes Apart Intensity: Mild Acosta Scoring Tool (Modified) Dilation (cm): 1-2cm (1) Effacement (%): 51-79% (2) Descent/Station: -1,0 (2) Cervix Consistency: Soft (2) Cervix Position: Anterior (2) Add 1 point for: Each previous vaginal delivery (1) Acosta Score: 10 Labs Laboratory Tests Test 06/24/20 08:03 06/24/20 09:05 Range/Units White Blood Count 14.4 H 4.3-11.0 10^3/uL Red Blood Count 3.63 L 3.80-5.11 10^6/uL Hemoglobin 10.8 L 11.5-16.0 g/dL Hematocrit 33 L 35-52 % Mean Corpuscular Volume 90 80-99 fL Mean Corpuscular Hemoglobin 30 25-34 pg Mean Corpuscular Hemoglobin Concent 33 32-36 g/dL Red Cell Distribution Width 13.5 10.0-14.5 % Platelet Count 223 130-400 10^3/uL Mean Platelet Volume 10.8 9.0-12.2 fL Immature Granulocyte % (Auto) 1 % Neutrophils (%) (Auto) 76 H 42-75 % Lymphocytes (%) (Auto) 18 12-44 % Monocytes (%) (Auto) 5 0-12 % Eosinophils (%) (Auto) 1 0-10 % Basophils (%) (Auto) 0 0-10 % Neutrophils # (Auto) 10.9 H 1.8-7.8 10^3/uL Lymphocytes # (Auto) 2.6 1.0-4.0 10^3/uL Monocytes # (Auto) 0.7 0.0-1.0 10^3/uL Eosinophils # (Auto) 0.1 0.0-0.3 10^3/uL Basophils # (Auto) 0.0 0.0-0.1 10^3/uL Immature Granulocyte # (Auto) 0.1 0.0-0.1 10^3/uL OB - Assessment/Plan/Diagnosis Assessment Assessment: induction of labor Admission Dx 25 yo @ 39 weeks TOLAC GBS neg Admission Status: Inpatient Order (span 2 midnights) Reason for Inpatient Admission: Induction of labor at term Plan Plan: Induction Induction Method: ELICEO BENNETT DO Jun 24, 2020 2:37 pm
--- NOTE | 2020-06-24 14:39 | OB Labor & Delivery Record ---
L&D History Date of Service Date of Service: Jun 24, 2020 History Expected Date of Delivery: Jun 28, 2020 Gestational Age in Weeks: 39 Hx : 3 Hx Para: 2 Complications Events: Routine care Operative Indications (Cesarea: N/A-Vaginal Delivery Intrapartal Events: None L&D Stage1 Stage One Onset of Labor - Date: Jun 24, 2020 Monitors and Tracing Monitor Mode: External Heart Rate: 12 Station: -1 Vital Signs VS - Last 72 Hours, by Label 06/24/20 06/24/20 06/24/20 06/24/20 07:22 08:25 08:55 09:00 Temp 36.4 Pulse 85 81 86 85 Resp 18 18 18 18 B/P (MAP) 115/66 (82) 115/63 (80) 105/65 (78) 107/67 (80) O2 Delivery Room Air Room Air Room Air Room Air 06/24/20 06/24/20 06/24/20 06/24/20 09:15 09:30 09:45 09:50 Pulse 86 83 99 90 Resp 18 18 18 18 B/P (MAP) 113/54 (73) 118/65 (82) 136/72 (93) 127/69 (88) Pulse Ox 100 99 O2 Delivery Room Air Room Air Room Air Room Air 06/24/20 06/24/20 06/24/20 06/24/20 09:55 10:00 10:05 10:08 Pulse 82 81 89 84 Resp 18 18 18 18 B/P (MAP) 118/67 (84) 116/66 (83) 117/65 (82) 115/61 (79) Pulse Ox 99 99 O2 Delivery Room Air Room Air Room Air Room Air 06/24/20 06/24/20 06/24/20 06/24/20 10:10 10:15 10:20 10:25 Pulse 76 86 73 83 Resp 18 18 18 18 B/P (MAP) 112/56 (74) 102/53 (69) 111/58 (75) 112/58 (76) Pulse Ox 99 98 96 O2 Delivery Room Air Room Air Room Air Room Air 06/24/20 06/24/20 06/24/20 06/24/20 10:30 10:35 10:40 10:45 Pulse 80 68 77 83 Resp 18 18 18 18 B/P (MAP) 103/55 (71) 92/45 (61) 103/57 (72) 102/60 (74) Pulse Ox 97 98 96 97 O2 Delivery Room Air Room Air Room Air Room Air 06/24/20 06/24/20 06/24/20 06/24/20 11:00 11:15 11:30 11:45 Pulse 59 61 67 55 Resp 18 18 18 18 B/P (MAP) 102/56 (71) 96/51 (66) 99/61 (74) Pulse Ox 97 97 98 97 O2 Delivery Room Air Room Air Room Air Room Air 06/24/20 12:00 Pulse 59 Resp 18 B/P (MAP) 102/58 (73) Pulse Ox 97 O2 Delivery Room Air Rupture of Membranes Amniotic Membrane Rupture Time: 08 Induction/Anesthesia Epidural Cath Placement - Time: 957 L&D Stage2 Monitors and Tracing Monitor Mode: External Heart Rate: 12 Monitor Decelerations: None Television Agent Variability: Average (6-10) Short Term Variability: Present Position: Right Occiput Anterior Presentation: Vertex Cord Descript/Complications Cord Vessel Description: 3 Vessels Delivery Type Infant Delivery Method: Spontaneous Vaginal Episiotomy/Perineal Laceration Laceraction(s)/Extensions: Yes Degree (describe repair) bilateral periurethral lacerations repaired and 1st degree laceration repaired using 3-0 rapide in usual fashion. Condition of Delivery 1 minute Comment: 9 5 minute Comment: 9 Notes Live male infant weight pending, see RN note Condition of Infant Condition of Infant: Living Exam: No Observed Abnormalities Resuscitation Resuscitation: N/A - Spontaneous Resp L&D Stage3 Pictocin Pitocin Administration mu/min: 6 Pitocin ml/hr: 6 Pitocin Administration Comment: pitocin increased 30 wide open Placenta Delivery Placenta Delivery: Spontaneous Delivery Summary Summary Estimated blood loss (mL): 300 Attending at delivery: Eliceo Whatley DO Condition of Delivery Examined: Cervix Examined, Uterus Explored Post Hemorrhage: No Condition of Mother stable Condition of (s) stable ELICEO WHATLEY DO Jun 24, 2020 2:39 pm
[2020-06-24] MEDS ORDERED: DIBUCAINE (NUPERCAINAL) 1% OINT 30 GM TOP PRN (14:45)
[2020-06-24] MEDS ORDERED: TETANUS,DIPTH,PERTUSS P/F (BOOSTRIX) 0.5 ML VIAL IM ONE (14:45)
[2020-06-24] MEDS ORDERED: WITCH HAZEL(TUCKS) 40 EA JAR TOP PRN (14:45)
[2020-06-24] MEDS ORDERED: BENZOCAINE/MENTHOL (DERMOPLAST) 60 ML CAN TP PRN (14:45)
[2020-06-24] MEDS ORDERED: MEASLES,MUMPS,RUBELLA 1 EA INJ SQ ONE (14:45)
[2020-06-24] MEDS ORDERED: HYDROcodone/APAP 5 MG/325 MG (LORTAB) TAB PO PRN (14:45)
[2020-06-24] MEDS: IBUPROFEN 600 MG (MOTRIN) TAB PO SCH ×2 (17:12→23:52)
--- NOTE | 2020-06-24 17:20 | NUR ---
FFu/1. lt rubra noted, no clots expressed. benita-care offered. v-pad in place. pt transferred to room 310 via w/c with this RN, and @ side. transported in open air crib. familiarized with room surroundings. call light within reach.
--- NOTE | 2020-06-24 17:50 | NUR ---
Pt up to bathroom, pt voided small amount, +pericare, new gown applied, panties and liner applied. Pt to wheelchair, belongings gathered. Addendum: 06/24/20 at 1951 by RADHA AGUILAR RN charted on wrong pt.
--- NOTE | 2020-06-24 18:00 | NUR ---
Pt transferred from -319 to -311 in stable condition via wheelchair accompanied by this rn, sarina, and belongings. Pt oriented to room, new ice pack applied, fresh ice water given. No further needs at this time. Addendum: 06/24/20 at 1952 by RADHA AGUILAR RN charted on wrong pt.
--- NOTE | 2020-06-24 19:22 | NUR ---
report given to LEANNA Petit.
--- NOTE | 2020-06-24 19:45 | NUR ---
RN to room for assessment. VSS. Pt denies passing any clots and reports minimal bleeding, denies pain. Pt up and moving well. Denies any needs or concerns at this time
[2020-06-24] MEDS: DOCUSATE SODIUM 100 MG (COLACE) CAP PO SCH (19:46)
[2020-06-24] MEDS ORDERED: BENZ78AE5 TP (20:57)
[2020-06-24] MEDS ORDERED: DIBU30OI TOP (20:57)
[2020-06-24] MEDS ORDERED: FERR325T18 PO (20:57)
[2020-06-24] MEDS ORDERED: DCS100C PO (20:57)
[2020-06-24] MEDS ORDERED: ACHD5005 PO (20:57)
[2020-06-24] MEDS ORDERED: IBUP-844 PO (20:57)
--- NOTE | 2020-06-24 20:58 | Discharge Inst-Women's Service ---
Discharge Inst-Women's Serv Depart Medication/Instructions New, Converted or Re-Newed RX: RX on Chart Final Diagnosis PPD 1 NVD Problems Reviewed?: Yes Consults/Follow Up Additional Follow Up: Yes Orders/Referrals Dr. Whatley in 6 weeks Activity Activity: Activity as Tolerated Driving Instructions: No Driving for 1 Week NO SMOKING: NO SMOKING Nothing Inside Vagina: No Douching, No Bally, No Tampons Diet Discharge Diet: No Restrictions Symptoms to Report to : Bleeding Excessive, Pain Increased, Fever Over 101 Degrees F, Vaginal Bleeding Increase, Questions/Concerns For Any Problems or Questions: Contact Your Physician ELICEO WHATLEY DO Jun 24, 2020 20:58
[2020-06-25 03:53] VITALS: BP 106/65
[2020-06-25] MEDS: IBUPROFEN 600 MG (MOTRIN) TAB PO SCH ×2 (06:04→12:47)
--- NOTE | 2020-06-25 06:51 | Anesthesia-Regional Post-Op ---
Regional Patient Condition Mental Status: Alert, Oriented x3 Circulation: Same as Pre-Op Headache: Absent Sensation: Full Recovery Motor Block: Absent Post Op Complications Complications None Follow Up Care/Instructions Patient Instructions None needed. Anesthesia/Patient Condition Patient is doing well, no complaints, stable vital signs, no apparent adverse anesthesia problems. No complications reported per nursing. [place] [facility] Criteria: No JESSICA RIVERA CRNA Jun 25, 2020 06:51
[2020-06-25 06:56] LABS: BASOPHILS % (AUTO) 0 % (0-10); EOSINOPHILS # (AUTO) 0.1 10^3/uL (0.0-0.3); EOSINOPHILS % (AUTO) 1 % (0-10); HEMATOCRIT 31 % (35-52); HEMOGLOBIN 9.6 g/dL (11.5-16.0); LYMPHOCYTES # (AUTO) 2.7 10^3/uL (1.0-4.0); LYMPHOCYTES % (AUTO) 18 % (12-44); MEAN CORPUSCULAR HEMOGLOBIN 30 pg (25-34); MEAN CORPUSCULAR HGB CONC 31 g/dL (32-36); MEAN CORPUSCULAR VOLUME 94 fL (80-99); MEAN PLATELET VOLUME 10.9 fL (9.0-12.2); MONOCYTES # (AUTO) 0.8 10^3/uL (0.0-1.0); MONOCYTES % (AUTO) 6 % (0-12); NEUTROPHILS # (AUTO) 11.1 10^3/uL (1.8-7.8); NEUTROPHILS % (AUTO) 75 % (42-75); PLATELET COUNT 189 10^3/uL (130-400); WHITE BLOOD COUNT 14.8 10^3/uL (4.3-11.0)
[2020-06-25] MEDS ORDERED: PRENATAL VITAMIN 1 EA TAB PO SCH (07:00)
--- NOTE | 2020-06-25 08:40 | Postpartum Progress Note ---
Note Note Day # 1 Subjective: Patient is without complaints. Ambulating, voiding. Tolerating a regular diet without nausea or vomiting. Normal lochia. Pain is well controlled with oral pain medications. Objective: Physical Exam: General - Alert and oriented, no apparent distress Abdomen - Soft, appropriately tender to palpation, non-distended, fundus firm at umbilicus Extremities - no edema, negative [place]'s bilaterally Assessment: PPD 1 NVD Successful Acute blood loss anemi Plan: Routine care. Encourage breast feeding. Encourage ambulation. Ferrous sulfate supplementation. Plan for discharge today Vitals - Labs Vital Signs - I&O Vital Signs Date Time Temp Pulse Resp B/P (MAP) Pulse Ox O2 Delivery O2 Flow Rate FiO2 06/25/20 03:53 36.6 90 16 106/65 (79) 98 06/24/20 23:51 36.9 69 16 116/65 (82) 98 Room Air 06/24/20 19:45 36.4 71 18 98/54 (69) 98 Room Air 06/24/20 16:30 36.8 71 16 97/50 (66) Room Air 06/24/20 16:15 74 16 107/58 (74) Room Air 06/24/20 16:00 74 16 96/54 (68) Room Air 06/24/20 15:45 61 16 103/53 (70) Room Air 06/24/20 15:30 65 16 109/57 (74) Room Air 06/24/20 14:45 75 16 93/56 (68) Room Air 06/24/20 14:30 64 16 102/55 (71) Room Air 06/24/20 14:00 84 16 114/70 (85) Room Air 06/24/20 13:31 Non Rebreather 15.00 06/24/20 13:30 60 18 103/58 (73) 99 Room Air 06/24/20 13:15 60 18 103/58 (73) 99 Room Air 06/24/20 13:00 78 18 94/51 (65) 98 Room Air 06/24/20 12:45 72 18 105/57 (73) 98 Room Air 06/24/20 12:35 36.2 06/24/20 12:30 62 18 100/59 (73) 98 Room Air 06/24/20 12:15 56 18 105/56 (72) 97 Room Air 06/24/20 12:00 59 18 102/58 (73) 97 Room Air 06/24/20 11:45 55 18 99/61 (74) 97 Room Air 06/24/20 11:30 67 18 96/51 (66) 98 Room Air 06/24/20 11:15 61 18 102/56 (71) 97 Room Air 06/24/20 11:00 59 18 97 Room Air 06/24/20 10:45 83 18 102/60 (74) 97 Room Air 06/24/20 10:40 77 18 103/57 (72) 96 Room Air 06/24/20 10:35 68 18 92/45 (61) 98 Room Air 06/24/20 10:30 80 18 103/55 (71) 97 Room Air 06/24/20 10:25 83 18 112/58 (76) 96 Room Air 06/24/20 10:20 73 18 111/58 (75) 98 Room Air 06/24/20 10:15 86 18 102/53 (69) 99 Room Air 06/24/20 10:10 76 18 112/56 (74) Room Air 06/24/20 10:08 84 18 115/61 (79) Room Air 06/24/20 10:05 89 18 117/65 (82) Room Air 06/24/20 10:00 81 18 116/66 (83) 99 Room Air 06/24/20 09:55 82 18 118/67 (84) 99 Room Air 06/24/20 09:50 90 18 127/69 (88) 99 Room Air 06/24/20 09:45 99 18 136/72 (93) 100 Room Air 06/24/20 09:30 83 18 118/65 (82) Room Air 06/24/20 09:15 86 18 113/54 (73) Room Air 06/24/20 09:00 85 18 107/67 (80) Room Air 06/24/20 08:55 86 18 105/65 (78) Room Air I & O 06/25/20 07:00 Intake Total 2000 ml Balance 2000 ml Labs Laboratory Tests 06/24/20 09:05: Coronavirus (COVID-19)(PCR) Negative 06/25/20 06:22: White Blood Count 14.8H, Red Blood Count 3.24L, Hemoglobin 9.6L, Hematocrit 31L, Mean Corpuscular Volume 94, Mean Corpuscular Hemoglobin 30, Mean Corpuscular Hemoglobin Concent 31L, Red Cell Distribution Width 13.6, Platelet Count 189, Mean Platelet Volume 10.9, Immature Granulocyte % (Auto) 1, Neutrophils (%) (Auto) 75, Lymphocytes (%) (Auto) 18, Monocytes (%) (Auto) 6, Eosinophils (%) (Auto) 1, Basophils (%) (Auto) 0, Neutrophils # (Auto) 11.1H, Lymphocytes # (Auto) 2.7, Monocytes # (Auto) 0.8, Eosinophils # (Auto) 0.1, Basophils # (Auto) 0.0, Immature Granulocyte # (Auto) 0.1 ELICEO WHATLEY DO Jun 25, 2020 8:39 am
[2020-06-25] MEDS ORDERED: FERROUS SULF 325 MG (IRON) TAB PO SCH (09:00)
[2020-06-25 09:20] VITALS: BP 108/51
--- NOTE | 2020-06-25 09:20 | NUR ---
initial shift assessment completed, see interventions for further.
--- NOTE | 2020-06-25 11:00 | NUR ---
here. dismissal orders received.
[2020-06-25] MEDS: DOCUSATE SODIUM 100 MG (COLACE) CAP PO SCH (12:47)
--- NOTE | 2020-06-25 14:58 | NUR ---
dismissal instructions given, verbalizes understanding. reviewed follow up appointment & Rx's. signature page signed, placed on chart.
--- NOTE | 2020-06-25 15:30 | NUR ---
pt ambulated to private vehicle with this RN, and infant @ side. secured in rear facing car seat. pt stable with no sx's of distress noted.
== END 2020-06-25 15:30 | disposition home or self-care (01) | DRG 806 ==
LOC: LDRP 06:53
PROVIDERS: ADMIT Obstetrics & Gynecology; ATTEND Obstetrics & Gynecology
PROC: 10E0XZZ Delivery of Products of Conception, External Approach (ICD-10-PCS; principal; 2020-06-24)
PROC: 10907ZC Drainage of Amniotic Fluid, Therapeutic from Products of Conception, Via Natural or Artificial Opening (ICD-10-PCS; 2020-06-24)
PROC: 0HQ9XZZ Repair Perineum Skin, External Approach (ICD-10-PCS; 2020-06-24)
PROC: 0UQMXZZ Repair Vulva, External Approach (ICD-10-PCS; 2020-06-24)
DX: O34.211 Maternal care for low transverse scar from previous cesarean delivery (principal); D62 Acute posthemorrhagic anemia; Z37.0 Single live birth; Z3A.39 39 weeks gestation of pregnancy; Z20.828 Contact with and (suspected) exposure to other viral communicable diseases; O71.82 Other specified trauma to perineum and vulva; O70.0 First degree perineal laceration during delivery; O90.81 Anemia of the puerperium
CPT/HCPCS: 36415; 85025; 85027; 86850; 86900; 86901; 87635